=== PATIENT | male | born 1975 | race Caucasian/White ===

== ENCOUNTER 2017-09-29 01:01 | Emergency (ER) | payer MEDICAID ==
[2017-09-29] MEDS ORDERED: Metoclopramide 10 MG/2 ML SDV IVPUSH ONE (01:13)
[2017-09-29] MEDS ORDERED: LORazepam 2 MG/ML SDV IVPUSH ONE ×4 (01:13→04:46)
[2017-09-29] MEDS ORDERED: Thiamine 100 MG in Sodium Chloride 0.9% 100 ML IV ONE (01:13)
[2017-09-29] MEDS ORDERED: Dextrose 5%-Lactated Ringers 1,000 ML IV SCH ×2 (01:15→03:45)
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
[2017-09-29] MEDS ORDERED: diphenhydrAMINE 50 MG/ML SDV IVPUSH ONE (02:22)
[2017-09-29] MEDS ORDERED: diphenhydrAMINE 50 MG/ML SDV ONE (02:28)
[2017-09-29] MEDS ORDERED: Sodium Chloride 0.9% 1,000 ML IV SCH (03:00)
== END 2017-09-29 10:40 | disposition home or self-care (01) ==
LOC: JD.ED 01:01 → MERGE 01:01 → JD.ED 10:40
DX: F10.129 Alcohol abuse with intoxication, unspecified (principal); E87.2 Acidosis; F17.210 Nicotine dependence, cigarettes, uncomplicated; Y90.8 Blood alcohol level of 240 mg/100 ml or more
CPT/HCPCS: 36415; 80053; 80306; 82009; 83605; 83690; 83735; 85025; 85610; 85730; 96361; 96365; 96375; 96376; 99284; G0480; J1200; J2060; J2765; J3411; J7030; J7040; J7042

== ENCOUNTER 2017-09-30 03:05 | Inpatient (IN) | payer MEDICAID ==
--- NOTE | 2017-09-30 03:18 | EDM.PDOC ---
ED HPI GENERAL MEDICAL PROBLEM - General Chief Complaint: Abdominal Pain Stated Complaint: [facility] Time Seen by Provider: 09/30/17 03:11 Source of Information: Reports: Patient History Limitations: Reports: No Limitations - History of Present Illness INITIAL COMMENTS - FREE TEXT/NARRATIVE: 42-year-old male who spent the night in the ED last night presents once again to the ED by [facility]. Patient states that since he was discharged at 0930 hrs. yesterday am. Patient had presented to the ED dropped off by a friend from [facility] severely intoxicated by alcohol. Apparently he was binge drinking for the last 3 days over the . He had stopped drinking for several months or years. His current blood alcohol yesterday morning was 0.29 g percent. He was found to have a significant lactic acidosis with a lactic acid of 6.0. He was therefore given 2 L of D5 lactated Ringer's overnight and received Ativan 1 mg IV 3 or 4 occasions to keep him in the bed. She also received Reglan 10 mg IV for nausea relief. He states since he got home this morning he has not drank anything further. He has taken a few pairs and a bit of other food in. He remains extremely nauseated and since he took the pairs he has developed increasing mid abdominal pain rating to to his back suggestive of pancreatitis. To his knowledge never had pancreatitis in the past. He has not vomited up any blood. He has had marked nausea without vomiting. States the pain is what brought him to the ED now. He has never expressed anything like this in his life before. Onset: Today Onset Date: 09/30/17 Onset Time: 12:00 Duration: Hour(s): Location: Reports: Abdomen (Diffuse severe upper abdominal pain mostly epigastric left upper quadrant radiating through to his mid back.) Quality: Reports: Ache, Other Severity: Severe (Worse pain is ever experienced. Another 10) Improves with: Reports: None Worsens with: Reports: Other Context: Reports: Other (Binge alcohol use 3 days over the weekend. He was seen through the ED last night where his blood alcohol was found. 0.29 g percent. He had a significant lactic acidosis at that time felt to be due to alcohol abuse for 3 days without eating. He was treated with 2 L of Ringer's lactate with dextrose as well as Reglan 10 mg IV for nausea vomiting relief and I believe 4 mg of Ativan in total for sedation to keep him in the bed.). Denies : Activity (Dry heaves.), Exercise, Lifting, Sick Contact, Trauma Associated Symptoms: Reports: Loss of Appetite, Malaise, Nausea/Vomiting, Weakness. 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 [No Known Home Meds] 09/29/17 [History] Past Medical History Gastrointestinal History: Reports: GERD, Hepatitis (Known hepatitis C.) Psychiatric History: Reports: Bipolar Social & Family History - Tobacco Use Years of Tobacco use: 10 - Alcohol Use Days Per Week of Alcohol Use: 1 Number of Drinks Per Day: 6 Total Drinks Per Week: 6 - Recreational Drug Use Recreational Drug Use: No - Living Situation & Occupation Living situation: Reports: Occupation: Unemployed ED ROS GENERAL - Review of Systems Review Of Systems: See Below Constitutional: Reports: Malaise, Weakness, Fatigue, Decreased Appetite. Denies : Fever, Chills HEENT: Reports: No Symptoms Respiratory: Reports: No Symptoms Cardiovascular: Reports: No Symptoms Endocrine: Reports: No Symptoms GI/Abdominal: Reports: Abdominal Pain (Severe abdominal pain 10 out of 10 mostly above the umbilicus epigastrium and left upper quadrant but radiates across his abdomen. It also radiates through to his mid lower back infrascapular early.), Decreased Appetite, Nausea, Vomiting (Mostly dry heaving. No hematemesis). Denies: Constipation, Diarrhea, Distension, Flatus, Hematemesis, Hematochezia, Melena, Other : Reports: No Symptoms Musculoskeletal: Reports: No Symptoms Skin: Reports: No Symptoms Neurological: Reports: No Symptoms Psychiatric: Reports: Other Hematologic/Lymphatic: Reports: No Symptoms (History of bipolar affective disorder.) Immunologic: Reports: No Symptoms ED EXAM, GI/ABD - Physical Exam Exam: See Below Exam Limited By: No Limitations General Appearance: Alert, WD/WN, Moderate Distress (He is in quite severe pain. He is sober at this time. No smell of alcohol at all) Eyes: Bilateral: Normal Appearance (No jaundice. No nystagmus.) Throat/Mouth: Normal Inspection, Normal Lips, Normal Oropharynx, Other. No: Normal Teeth (Patient has a dental infection involving his left upper second molar tooth which is badly decayed and fractured. He states it is hurting quite badly at this time) Head: Atraumatic, Normocephalic (Tongue is dry and coated. Lips are dry) Neck: Normal Inspection, Supple, Non-Tender, Full Range of Motion. No: Lymphadenopathy (L), Lymphadenopathy (R) Respiratory/Chest: No Respiratory Distress, Lungs Clear, Normal Breath Sounds, No Accessory Muscle Use, Chest Non-Tender Cardiovascular: Normal Peripheral Pulses, Regular Rate, Rhythm, No Edema, No Gallop, No Murmur GI/Abdominal Exam: Tender (Tender epigastrium and left upper quadrant), Abnormal Bowel Sounds (Bowel sounds are very quiet sent and few and far between. ) Back Exam: Normal Inspection, Full Range of Motion, CVA Tenderness (L), CVA Tenderness (R) Extremities: Normal Inspection, Normal Range of Motion (Mildly tender), Non- Tender, No Pedal Edema Neurological: Alert, Oriented, CN II-XII Intact, Normal Cognition Psychiatric: Normal Mood, Other Skin Exam: Warm, Dry, Intact, Normal Color, No Rash (In obvious pain.) EKG INTERPRETATION EKG Date: 09/30/17 Time: 03:40 Rhythm: NSR Rate (Beats/Min): 85 [place]: Normal P-Wave: Present QRS: Other (Initial poor R-wave progression. There are Q waves in leads II, III , and F aVF less than 25% of the QRS complex in leads 2 and 3 and therefore considered insignificant. No convincing evidence of previous inferior wall myocardial infarction.) ST-T: Normal QT: Prolonged (QT is moderately prolonged.) EKG Interpretation Comments: Abnormal ECG Course - Vital Signs Last Recorded V/S: Last Vital Signs Temp 36.4 C 09/30/17 03:07 Pulse 80 09/30/17 03:07 Resp 18 09/30/17 03:07 BP 148/98 H 09/30/17 03:07 Pulse Ox 98 09/30/17 03:07 - Orders/Labs/Meds Orders: Active Orders 24 hr Category Date Time Status EKG Documentation Completion [RC] STAT Care 09/30/17 03:20 Active UA W/MICROSCOPIC [URIN] Stat Lab 09/30/17 03:54 Ordered Dextrose 5%-0.9% NaCl [Dextrose 5%-Normal Saline] 1,000 Med 09/30/17 05:45 Active ml IV ASDIRECTED Dextrose 5%-Lactated Ringers 1,000 ml Med 09/30/17 03:30 Active IV ASDIRECTED Medication Orders Dextrose/Lactated Ringer's (Dextrose 5%-Lactated Ringers) 1,000 mls @ 999 mls/ hr IV ASDIRECTED ARAVIND Last Admin: 09/30/17 04:20 Dose: 999 mls/hr Dextrose/Sodium Chloride (Dextrose 5%-Normal Saline) 1,000 mls @ 150 mls/hr IV ASDIRECTED ARAVIND Last Admin: 09/30/17 05:46 Dose: 150 mls/hr Labs: Laboratory Tests 09/30/17 09/30/17 09/30/17 Range/Units 03:50 03:50 03:50 WBC 8.31 (4.23-9.07) K/mm3 RBC 4.99 (4.63-6.08) M/mm3 Hgb 15.2 (13.7-17.5) gm/L Hct 42.7 (40.1-51.0) % MCV 85.6 (79.0-92.2) fl MCH 30.5 (25.7-32.2) pg MCHC 35.6 H (32.2-35.5) g/dl RDW Std Deviation 37.0 (35.1-43.9) fL Plt Count 104 L (163-337) K/mm3 MPV 10.5 (9.4-12.3) fl Neutrophils % (Manual) 80 H (40-60) % Band Neutrophils % 0 (0-10) % Lymphocytes % (Manual) 18 L (20-40) % Atypical Lymphs % 0 % Monocytes % (Manual) 2 (2-10) % Eosinophils % (Manual) 0 L (0.8-7.0) % Basophils % (Manual) 0 L (0.2-1.2) Platelet Estimate Adequate RBC Morph Comment Normal PT 13.1 H (8.0-13.0) SECONDS INR 1.22 APTT 30 (22-36) SECONDS Sodium 140 (136-145) mEq/L Potassium 3.3 L (3.5-5.1) mEq/L Chloride 102 (98-107) mEq/L Carbon Dioxide 23 (21-32) mEq/L Anion Gap 18.3 H (5-15) BUN 8 (7-18) mg/dL Creatinine 0.8 (0.7-1.3) mg/dL Est Cr Clr Drug Dosing 138.72 mL/min Estimated GFR (MDRD) > 60 (>60) mL/min BUN/Creatinine Ratio 10.0 L (14-18) Glucose 157 H (74-106) mg/dL Lactic Acid (0.4-2.0) mmol/L Calcium 9.2 (8.5-10.1) mg/dL Magnesium (1.8-2.4) mg/dl Total Bilirubin 1.8 H (0.2-1.0) mg/dL AST 1651 H (15-37) U/L ALT 1040 H (16-63) U/L Alkaline Phosphatase 73 (46-116) U/L C-Reactive Protein 0.8 (<1.0) mg/dL Total Protein 7.4 (6.4-8.2) g/dl Albumin 4.2 (3.4-5.0) g/dl Globulin 3.2 gm/dL Albumin/Globulin Ratio 1.3 (1-2) Lipase 199 (73-393) U/L Urine Color (Yellow) Urine Appearance (Clear) Urine pH (5.0-8.0) Ur Specific [place] (1.005-1.030) Urine Protein (Negative) Urine Glucose (UA) (Negative) Urine Ketones (Negative) Urine Occult Blood (Negative) Urine Nitrite (Negative) Urine Bilirubin (Negative) Urine Urobilinogen (0.2-1.0) Ur Leukocyte Esterase (Negative) Urine RBC (0-5) /hpf Urine WBC (0-5) /hpf Ur Epithelial Cells (0-5) /hpf Ur Squamous Epith Cells (0-5) /hpf Urine Bacteria (FEW) /hpf Urine Mucus (FEW) /hpf Ketones (0.0-0.3) mM 09/30/17 09/30/17 09/30/17 Range/Units 03:50 03:50 03:54 WBC (4.23-9.07) K/mm3 RBC (4.63-6.08) M/mm3 Hgb (13.7-17.5) gm/L Hct (40.1-51.0) % MCV (79.0-92.2) fl MCH (25.7-32.2) pg MCHC (32.2-35.5) g/dl RDW Std Deviation (35.1-43.9) fL Plt Count (163-337) K/mm3 MPV (9.4-12.3) fl Neutrophils % (Manual) (40-60) % Band Neutrophils % (0-10) % Lymphocytes % (Manual) (20-40) % Atypical Lymphs % % Monocytes % (Manual) (2-10) % Eosinophils % (Manual) (0.8-7.0) % Basophils % (Manual) (0.2-1.2) Platelet Estimate RBC Morph Comment PT (8.0-13.0) SECONDS INR APTT (22-36) SECONDS Sodium (136-145) mEq/L Potassium (3.5-5.1) mEq/L Chloride (98-107) mEq/L Carbon Dioxide (21-32) mEq/L Anion Gap (5-15) BUN (7-18) mg/dL Creatinine (0.7-1.3) mg/dL Est Cr Clr Drug Dosing mL/min Estimated GFR (MDRD) (>60) mL/min BUN/Creatinine Ratio (14-18) Glucose (74-106) mg/dL Lactic Acid (0.4-2.0) mmol/L Calcium (8.5-10.1) mg/dL Magnesium 2.1 (1.8-2.4) mg/dl Total Bilirubin (0.2-1.0) mg/dL AST (15-37) U/L ALT (16-63) U/L Alkaline Phosphatase (46-116) U/L C-Reactive Protein (<1.0) mg/dL Total Protein (6.4-8.2) g/dl Albumin (3.4-5.0) g/dl Globulin gm/dL Albumin/Globulin Ratio (1-2) Lipase (73-393) U/L Urine Color Yellow (Yellow) Urine Appearance Clear (Clear) Urine pH 7.0 (5.0-8.0) Ur Specific [place] 1.020 (1.005-1.030) Urine Protein 1+ H (Negative) Urine Glucose (UA) Negative (Negative) Urine Ketones Negative (Negative) Urine Occult Blood Negative (Negative) Urine Nitrite Negative (Negative) Urine Bilirubin Negative (Negative) Urine Urobilinogen 4.0 H (0.2-1.0) Ur Leukocyte Esterase Negative (Negative) Urine RBC 0-5 (0-5) /hpf Urine WBC 0-5 (0-5) /hpf Ur Epithelial Cells 0-5 (0-5) /hpf Ur Squamous Epith Cells 0-5 (0-5) /hpf Urine Bacteria Not seen (FEW) /hpf Urine Mucus Not seen (FEW) /hpf Ketones 0.21 (0.0-0.3) mM 04/03/18 Range/Units 06:10 WBC (4.23-9.07) K/mm3 RBC (4.63-6.08) M/mm3 Hgb (13.7-17.5) gm/L Hct (40.1-51.0) % MCV (79.0-92.2) fl MCH (25.7-32.2) pg MCHC (32.2-35.5) g/dl RDW Std Deviation (35.1-43.9) fL Plt Count (163-337) K/mm3 MPV (9.4-12.3) fl Neutrophils % (Manual) (40-60) % Band Neutrophils % (0-10) % Lymphocytes % (Manual) (20-40) % Atypical Lymphs % % Monocytes % (Manual) (2-10) % Eosinophils % (Manual) (0.8-7.0) % Basophils % (Manual) (0.2-1.2) Platelet Estimate RBC Morph Comment PT (8.0-13.0) SECONDS INR APTT (22-36) SECONDS Sodium (136-145) mEq/L Potassium (3.5-5.1) mEq/L Chloride (98-107) mEq/L Carbon Dioxide (21-32) mEq/L Anion Gap (5-15) BUN (7-18) mg/dL Creatinine (0.7-1.3) mg/dL Est Cr Clr Drug Dosing mL/min Estimated GFR (MDRD) (>60) mL/min BUN/Creatinine Ratio (14-18) Glucose (74-106) mg/dL Lactic Acid 2.5 H (0.4-2.0) mmol/L Calcium (8.5-10.1) mg/dL Magnesium (1.8-2.4) mg/dl Total Bilirubin (0.2-1.0) mg/dL AST (15-37) U/L ALT (16-63) U/L Alkaline Phosphatase (46-116) U/L C-Reactive Protein (<1.0) mg/dL Total Protein (6.4-8.2) g/dl Albumin (3.4-5.0) g/dl Globulin gm/dL Albumin/Globulin Ratio (1-2) Lipase (73-393) U/L Urine Color (Yellow) Urine Appearance (Clear) Urine pH (5.0-8.0) Ur Specific [place] (1.005-1.030) Urine Protein (Negative) Urine Glucose (UA) (Negative) Urine Ketones (Negative) Urine Occult Blood (Negative) Urine Nitrite (Negative) Urine Bilirubin (Negative) Urine Urobilinogen (0.2-1.0) Ur Leukocyte Esterase (Negative) Urine RBC (0-5) /hpf Urine WBC (0-5) /hpf Ur Epithelial Cells (0-5) /hpf Ur Squamous Epith Cells (0-5) /hpf Urine Bacteria (FEW) /hpf Urine Mucus (FEW) /hpf Ketones (0.0-0.3) mM Meds: Medications Generic Name Dose Route Start Last Admin Trade Name Freq PRN Reason Stop Dose Admin Dextrose/Lactated Ringer's 1,000 mls @ 999 mls/hr 09/30/17 03:30 09/30/17 04: 20 Dextrose 5%-Lactated Ringers IV 999 mls/hr ASDIRECTED ARAVIND Administration Dextrose/Sodium Chloride 1,000 mls @ 150 mls/hr 09/30/17 05:45 09/30/17 05:46 Dextrose 5%-Normal Saline IV 150 mls/hr ASDIRECTED ARAVIND Administration Discontinued Medications Generic Name Dose Route Start Last Admin Trade Name Jeff PRN Reason Stop Dose Admin Hydromorphone HCl 1 mg 09/30/17 03:19 09/30/17 03:47 Dilaudid IVPUSH 09/30/17 03:20 1 mg ONETIME ONE Administration Hydromorphone HCl 1 mg 09/30/17 04:35 09/30/17 04:41 Dilaudid IVPUSH 09/30/17 04:36 1 mg ONETIME ONE Administration Hydromorphone HCl 1 mg 09/30/17 05:57 09/30/17 06:18 Dilaudid IVPUSH 09/30/17 05:58 1 mg ONETIME ONE Administration Ceftriaxone Sodium 1 gm/ 100 mls @ 200 mls/hr 09/30/17 03:22 09/30/17 03:51 Sodium Chloride IV 09/30/17 03:51 200 mls/hr ONETIME ONE Administration Potassium Chloride 10 meq/ 100 mls @ 100 mls/hr 09/30/17 05:32 09/30/17 05:47 Premix IV 09/30/17 06:31 100 mls/hr ONETIME ONE Administration Lorazepam 1 mg 09/30/17 05:57 09/30/17 06:14 Ativan IVPUSH 09/30/17 05:58 1 mg ONETIME ONE Administration Metoclopramide HCl 10 mg 09/30/17 03:20 09/30/17 03:52 Reglan IVPUSH 09/30/17 03:21 10 mg ONETIME ONE Administration - Radiology Interpretation Free Text/Narrative:: 42-year-old male returns to the ED by ambulance from [facility] due to severe upper abdominal pain rating to to his back associated nausea and dry heaves. Patient spent the night in the ED last night of which he has no recollection as he was severely inebriated by alcohol. His blood alcohol last night at bedtime presentation was 0.29 g percent. By history he had been drinking heavily for 3 days without eating. He was found to have a significant lactic acidosis with a lactic acid of 6.0. It was 3.9 minutes time of discharge this morning. He has not been able to eat or drink much since leaving the hospital. At present he is complaining of severe abdominal pain radiating through to his back suggestive of pancreatitis. He has no history of pancreatitis. Plan 1 view of his chest will be done to make sure there is no free air under his diaphragm is he is quite tender in the epigastrium. He will be given IV D5 normal saline at open. Routine labs ordered including a serum lipase. Given Dilaudid 1 mg IV with Reglan 10 mg IV for acute pain and nausea relief. The Dilaudid should also help with his severe dental pain. Will give Rocephin 1 g IV for dental pain infections as I suspect he has an abscess involving the left upper first molar tooth which is badly decayed. - Re-Assessments/Exams Free Text/Narrative Re-Assessment/Exam: 09/30/17 04:41 patient did get some initial relief of the abdominal pain with initial dose of Dilaudid 1 mg however now the pain is coming back quite intensely. Will repeat Dilaudid 1 mg IV. Of note his chest x-ray was within normal limits although it does show rather prominent pulmonary arteries. There was no free air under the diaphragm. One view of the abdomen also was within normal limits showing no evidence of bowel obstruction. There is a fair amount of air tracking in the right hemicolon but again no sign of obstruction labs are still pending. 09/30/17 05:21 Labs are back. White count is normal at 8.31 with 80% neutrophils and no bands reported. Hemoglobin is 15.2 with hematocrit of 42.7. Platelet count is 104,000 slightly low. PT is 13.1 with an INR 1.2 to a mild auto anticoagulation suggesting he has been drinking alcohol more than he has let on. PTT is 30. Sodium is 140 with a potassium of 3.3. Chloride 102 with a bicarbonate of 23. Anion gap elevated at 18.3. BUN was 8 with a creatinine of 0.8. Glucose is 157. Calcium is 9.2. Total bilirubin is elevated at 1.8 AST is markedly elevated at 1651. ALT is markedly elevated at 1040. Alk phosphatase is 73 C-reactive protein is 0.8. Lipase is normal at 199. Urinalysis is negative. Therefore his current abdominal pain appears to be secondary to acute alcohol- induced hepatitis with an associated continued metabolic acidosis. I will have the lab come and check his serum ketones and lactic acid level as he had a significant lactic acidosis last evening. This appears to be secondary to alcoholism and not eating for the last 3 or 4 days. Currently he has been able to rest after the second dose of Dilaudid --1 mg IV. 09/30/17 05:56 patient advised of the findings of acute alcohol-induced hepatitis. He has known hepatitis C as well. Pain is trying to come back. He is also starting to show some agitation I believe from alcohol withdrawal. Therefore I will give him 1 mg of Ativan IV with Dilaudid 1 mg IV as well. Plan will be to admit him to the hospital likely to the intensive care unit since I believe there is a high risk of alcohol withdrawal symptoms. We'll discuss case with Dr. Manuel shortly. Apparently there is only 1 nurse in the ICU overnight and therefore he would not be able to be admitted to the intensive care unit until after 0700 hrs. this morning. Serum ketones are 0.21. Lactic acid and magnesium are pending 09/30/17 06:20: Patient to be admitted to the intensive care unit once a bed is available. I did speak with Dr. Manuel in this regard and he has agreed to the admission. Risk of alcohol withdrawal symptoms is I think fairly high. Departure - Departure Time of Disposition: 07:30 Disposition: Admitted As Inpatient 68 Condition: Serious Clinical Impression: Alcoholic hepatitis without ascites, Lactic acidosis, Hypokalemia due to inadequate potassium intake Abdominal pain Qualifiers: Abdominal location: right upper quadrant Qualified Code(s): R10.11 - Right upper quadrant pain Intractable nausea and vomiting Qualifiers: Vomiting type: unspecified Qualified Code(s): R11.2 - Nausea with vomiting, unspecified - Discharge Information Referrals: PCP,None [Primary Care Provider] - Forms: ED Department Discharge - My Orders Last 24 Hours: My Active Orders 09/30/17 03:20 EKG Documentation Completion [RC] STAT 09/30/17 03:30 Dextrose 5%-Lactated Ringers 1,000 ml IV ASDIRECTED 09/30/17 03:54 UA W/MICROSCOPIC [URIN] Stat 09/30/17 05:45 Dextrose 5%-0.9% NaCl [Dextrose 5%-Normal Saline] 1,000 ml IV ASDIRECTED - Assessment/Plan Last 24 Hours: My Active Orders 09/30/17 03:20 EKG Documentation Completion [RC] STAT 09/30/17 03:30 Dextrose 5%-Lactated Ringers 1,000 ml IV ASDIRECTED 09/30/17 03:54 UA W/MICROSCOPIC [URIN] Stat 09/30/17 05:45 Dextrose 5%-0.9% NaCl [Dextrose 5%-Normal Saline] 1,000 ml IV ASDIRECTED
[2017-09-30] MEDS ORDERED: HYDROmorphone 0.5 MG/0.5 ML SYRINGE IVPUSH ONE ×3 (03:19→05:57)
[2017-09-30] MEDS ORDERED: Metoclopramide 10 MG/2 ML SDV IVPUSH ONE (03:20)
[2017-09-30] MEDS ORDERED: cefTRIAXone 1 GM in Sodium Chloride 0.9% 100 ML IV ONE (03:22)
[2017-09-30] MEDS ORDERED: Dextrose 5%-Lactated Ringers 1,000 ML IV SCH (03:30)
[2017-09-30] MEDS ORDERED: Potassium Chloride 10 MEQ in Premix Bag 1 BAG IV ONE (05:32)
[2017-09-30] MEDS ORDERED: Dextrose 5%-0.9% NaCl 1,000 ML IV SCH (05:45)
[2017-09-30] MEDS ORDERED: LORazepam 2 MG/ML SDV IVPUSH ONE (05:57)
--- NOTE | 2017-09-30 06:33 | CR ---
Chest: Frontal view of the chest was obtained. Comparison: No previous study. Heart size and mediastinum are normal. Lungs are clear. Bony structures are grossly intact. Impression: 1. Nothing acute is seen on frontal chest x-ray. Diagnostic code #1
--- NOTE | 2017-09-30 06:46 | CR ---
Abdomen: Supine view of the abdomen was obtained. Mildly dilated air-filled small bowel is seen distally. Gas also noted within the right colon which does not show any dilatation. No abnormal calcifications are seen. Bony structures are unremarkable for the patient's age. Surgical clips are seen within the left inguinal region. Impression: 1. Mildly dilated air-filled loops of small bowel seen distally. Developing distal small bowel obstruction is possible as well as small bowel ileus. Diagnostic code #3
--- NOTE | 2017-09-30 07:09 | PCM.HP ---
H&P History of Present Illness - General Date of Service: 09/30/17 Admit Problem/Dx: Admission Diagnosis/Problem Admission Diagnosis/Problem Abdominal pain Source of Information: Patient, Old Records, Provider, RN Notes Reviewed History Limitations: Reports: Intoxication - History of Present Illness Initial Comments - Free Text/Narative: This is 42 yo white male with past medical hx/o GERD, Hep C Infection, Bipolar Disorder, SA, Depression, Back Pain, Substance Abuse and Hx/o chronic ETOH Abuse who comes in with complaints of abdominal pain 10/10 localized to mid abdomen with radiation to his mid lower back. He reports decreased appetite, nausea and dry heaving. He denies having diarrhea. His last bowel movement was 5 days ago. He denies any hematemesis, hematochezia or melena. He further denies drinking or eating bad foods. His intake has not been good. His last etoh drink was friday. Patient carries a hx/o Hep C infection w/o current treatment felt to be contracted from hx/o IVDU. He has been drinking heavily in the past 3 days with combinations of heavy liquor and a case of beer daily. According to him, he has been overwhelmed with life. He just got out in correction in [place] due to reckless endangerment after he caught his having an affair. Patient smokes a pack a day and carries a hx/o amphethamine abuse. His last use was > a year go. He also carries a hx/o IVDU. He follows Dr. Simpson from [place] for his psychiatric care. Patient was initially seen in ED and was sent home to get better. Unfortunately , he did not do well so he was brought back by [place] [facility] for further treatment. His initial workup in emergency department shows a CBC remarkable for MCHC of 35.6, platelet count of 104, neutrophils of 80% and lymphocytes of 18%. His coagulation study shows PT of 13.1, INR of 1.22, and APTT of 30. His chemistry is remarkable for potassium of 3.3, anion gap of 18.3, glucose of 157, total bilirubin of 1.8, GGT of 321, AST of 1651, and ALT of 1040. His UA is negative for UTI. His chest x-ray shows no acute abnormal findings. His abdominal x-ray shows mildly dilated air fluid loops of small bowel seen distally and developing distal small bowel obstruction is possible as well as small bowel ileus. Patient is being admitted for medical treatment of alcohol abuse and abdominal pain likely related to alcohol abuse. He is full code. Abdomen Pain Score (Numeric/FACES): 6 - Related Data Allergies/Adverse Reactions: Allergies Allergy/AdvReac Type Severity Reaction Status Date / Time No Known Allergies Allergy Verified 09/30/17 08:24 Home Medications: Home Meds FLUoxetine [PROzac] 40 mg PO DAILY 01/29/14 [History] Methylphenidate HCl [Ritalin] 20 mg PO TID 09/30/17 [History] Past Medical History - Past Health History Medical/Surgical History: Denies Medical/Surgical History Respiratory History: Reports: TB Gastrointestinal History: Reports: GERD, Hepatitis (Known hepatitis C.) Psychiatric History: Reports: Bipolar - Infectious Disease History Infectious Disease History: Reports: Hepatitis C Social & Family History - Family History Family Medical History: Noncontributory - Tobacco Use Smoking Status *Q: Current Every Day Smoker Years of Tobacco use: 10 Packs/Tins Daily: 0.5 - Caffeine Use Caffeine Use: Reports: Coffee - Alcohol Use Days Per Week of Alcohol Use: 1 Number of Drinks Per Day: 6 Total Drinks Per Week: 6 - Recreational Drug Use Recreational Drug Use: No Recreational Drug Type: Reports: Methamphetamine - Living Situation & Occupation Living situation: Reports: Occupation: Unemployed H&P Review of Systems - Review of Systems: Review Of Systems: See Below General: Reports: Malaise, Weakness, Decreased Appetite. Denies: Fever, Chills HEENT: Reports: No Symptoms Pulmonary: Reports: No Symptoms Cardiovascular: Denies: Chest Pain, Palpitations, Dyspnea on Exertion, Edema, Lightheadedness, Syncope, Claudication, Blood Pressure Problem Gastrointestinal: Reports: Abdominal Pain, Constipation, Nausea, Vomiting, Other (No bowel movement in 5 days) Genitourinary: Reports: No Symptoms Musculoskeletal: Reports: No Symptoms Skin: Denies: Cyanosis, Jaundice, Mottled, Pallor, Diaphoresis, Bruising, Pruritis, Rash, Lesions Psychiatric: Denies: Confusion, Depression, Anxiety, Agitation, Cravings, Hallucinations Neurological: Denies: Confusion, Difficulty Walking, Weakness, Gait Disturbance Hematologic/Lymphatic: Reports: No Symptoms Immunologic: Reports: No Symptoms Exam - Exam Exam: See Below - Vital Signs Vital Signs: Last Vital Signs Temp 36.4 C 04/03/18 03:07 Pulse 80 09/30/17 03:07 Resp 18 09/30/17 03:07 BP 148/98 H 09/30/17 03:07 Pulse Ox 98 09/30/17 03:07 Weight: 102.058 kg - Exam General: Alert, Oriented, Cooperative. No: Mild Distress HEENT: Conjunctiva Clear, EACs Clear, Hearing Intact, Mucosa Moist & [place], Nares Patent, Normal Nasal Septum, Posterior Pharynx Clear, Pupils Equal, Pupils Reactive. No: EOMI Neck: Supple, Trachea Midline, +2 Carotid Pulse wo Bruit Lungs: Clear to Auscultation, Normal Respiratory Effort Cardiovascular: Regular Rate, Regular Rhythm GI/Abdominal Exam: Normal Bowel Sounds, Soft, No Organomegaly, No Distention, No Abnormal Bruit, No Mass, Tender (mild at mid-abdomen), Other (he is passing gas). No: Guarding, Rigid, Rebound, Hepatomegaly (Male) Exam: Deferred Rectal (Males) Exam: Deferred Back Exam: Normal Inspection, Decreased Range of Motion Extremities: Normal Inspection, Normal Range of Motion, Non-Tender, No Pedal Edema, Normal Capillary Refill Peripheral Pulses: 2+: Dorsalis Pedis (L), Dorsalis Pedis (R) Skin: Warm, Dry, Intact Neuro Extensive - Mental Status: Oriented x3, Normal Cognition, Memory Intact Neuro Extensive - Motor, Sensory, Reflexes: CN II-XII Intact, Normal Gait. No: Tremor Psychiatric: Alert, Normal Affect, Normal Mood. No: Agitated, Suicidal Ideation - Patient Data Lab Results Last 24 hrs: Laboratory Results - last 24 hr 09/30/17 09/30/17 09/30/17 Range/Units 03:50 03:50 03:50 WBC 8.31 (4.23-9.07) K/mm3 RBC 4.99 (4.63-6.08) M/mm3 Hgb 15.2 (13.7-17.5) gm/L Hct 42.7 (40.1-51.0) % MCV 85.6 (79.0-92.2) fl MCH 30.5 (25.7-32.2) pg MCHC 35.6 H (32.2-35.5) g/dl RDW Std Deviation 37.0 (35.1-43.9) fL Plt Count 104 L (163-337) K/mm3 MPV 10.5 (9.4-12.3) fl Neutrophils % (Manual) 80 H (40-60) % Band Neutrophils % 0 (0-10) % Lymphocytes % (Manual) 18 L (20-40) % Atypical Lymphs % 0 % Monocytes % (Manual) 2 (2-10) % Eosinophils % (Manual) 0 L (0.8-7.0) % Basophils % (Manual) 0 L (0.2-1.2) Platelet Estimate Adequate RBC Morph Comment Normal PT 13.1 H (8.0-13.0) SECONDS INR 1.22 APTT 30 (22-36) SECONDS Sodium 140 (136-145) mEq/L Potassium 3.3 L (3.5-5.1) mEq/L Chloride 102 (98-107) mEq/L Carbon Dioxide 23 (21-32) mEq/L Anion Gap 18.3 H (5-15) BUN 8 (7-18) mg/dL Creatinine 0.8 (0.7-1.3) mg/dL Est Cr Clr Drug Dosing 138.72 mL/min Estimated GFR (MDRD) > 60 (>60) mL/min BUN/Creatinine Ratio 10.0 L (14-18) Glucose 157 H (74-106) mg/dL Lactic Acid (0.4-2.0) mmol/L Calcium 9.2 (8.5-10.1) mg/dL Magnesium (1.8-2.4) mg/dl Total Bilirubin 1.8 H (0.2-1.0) mg/dL AST 1651 H (15-37) U/L ALT 1040 H (16-63) U/L Alkaline Phosphatase 73 (46-116) U/L C-Reactive Protein 0.8 (<1.0) mg/dL Total Protein 7.4 (6.4-8.2) g/dl Albumin 4.2 (3.4-5.0) g/dl Globulin 3.2 gm/dL Albumin/Globulin Ratio 1.3 (1-2) Lipase 199 (73-393) U/L Urine Color (Yellow) Urine Appearance (Clear) Urine pH (5.0-8.0) Ur Specific Brice (1.005-1.030) Urine Protein (Negative) Urine Glucose (UA) (Negative) Urine Ketones (Negative) Urine Occult Blood (Negative) Urine Nitrite (Negative) Urine Bilirubin (Negative) Urine Urobilinogen (0.2-1.0) Ur Leukocyte Esterase (Negative) Urine RBC (0-5) /hpf Urine WBC (0-5) /hpf Ur Epithelial Cells (0-5) /hpf Ur Squamous Epith Cells (0-5) /hpf Urine Bacteria (FEW) /hpf Urine Mucus (FEW) /hpf Ketones (0.0-0.3) mM 09/30/17 09/30/17 09/30/17 Range/Units 03:50 03:50 03:54 WBC (4.23-9.07) K/mm3 RBC (4.63-6.08) M/mm3 Hgb (13.7-17.5) gm/L Hct (40.1-51.0) % MCV (79.0-92.2) fl MCH (25.7-32.2) pg MCHC (32.2-35.5) g/dl RDW Std Deviation (35.1-43.9) fL Plt Count (163-337) K/mm3 MPV (9.4-12.3) fl Neutrophils % (Manual) (40-60) % Band Neutrophils % (0-10) % Lymphocytes % (Manual) (20-40) % Atypical Lymphs % % Monocytes % (Manual) (2-10) % Eosinophils % (Manual) (0.8-7.0) % Basophils % (Manual) (0.2-1.2) Platelet Estimate RBC Morph Comment PT (8.0-13.0) SECONDS INR APTT (22-36) SECONDS Sodium (136-145) mEq/L Potassium (3.5-5.1) mEq/L Chloride (98-107) mEq/L Carbon Dioxide (21-32) mEq/L Anion Gap (5-15) BUN (7-18) mg/dL Creatinine (0.7-1.3) mg/dL Est Cr Clr Drug Dosing mL/min Estimated GFR (MDRD) (>60) mL/min BUN/Creatinine Ratio (14-18) Glucose (74-106) mg/dL Lactic Acid (0.4-2.0) mmol/L Calcium (8.5-10.1) mg/dL Magnesium 2.1 (1.8-2.4) mg/dl Total Bilirubin (0.2-1.0) mg/dL AST (15-37) U/L ALT (16-63) U/L Alkaline Phosphatase (46-116) U/L C-Reactive Protein (<1.0) mg/dL Total Protein (6.4-8.2) g/dl Albumin (3.4-5.0) g/dl Globulin gm/dL Albumin/Globulin Ratio (1-2) Lipase (73-393) U/L Urine Color Yellow (Yellow) Urine Appearance Clear (Clear) Urine pH 7.0 (5.0-8.0) Ur Specific Brice 1.020 (1.005-1.030) Urine Protein 1+ H (Negative) Urine Glucose (UA) Negative (Negative) Urine Ketones Negative (Negative) Urine Occult Blood Negative (Negative) Urine Nitrite Negative (Negative) Urine Bilirubin Negative (Negative) Urine Urobilinogen 4.0 H (0.2-1.0) Ur Leukocyte Esterase Negative (Negative) Urine RBC 0-5 (0-5) /hpf Urine WBC 0-5 (0-5) /hpf Ur Epithelial Cells 0-5 (0-5) /hpf Ur Squamous Epith Cells 0-5 (0-5) /hpf Urine Bacteria Not seen (FEW) /hpf Urine Mucus Not seen (FEW) /hpf Ketones 0.21 (0.0-0.3) mM 04/03/18 Range/Units 06:10 WBC (4.23-9.07) K/mm3 RBC (4.63-6.08) M/mm3 Hgb (13.7-17.5) gm/L Hct (40.1-51.0) % MCV (79.0-92.2) fl MCH (25.7-32.2) pg MCHC (32.2-35.5) g/dl RDW Std Deviation (35.1-43.9) fL Plt Count (163-337) K/mm3 MPV (9.4-12.3) fl Neutrophils % (Manual) (40-60) % Band Neutrophils % (0-10) % Lymphocytes % (Manual) (20-40) % Atypical Lymphs % % Monocytes % (Manual) (2-10) % Eosinophils % (Manual) (0.8-7.0) % Basophils % (Manual) (0.2-1.2) Platelet Estimate RBC Morph Comment PT (8.0-13.0) SECONDS INR APTT (22-36) SECONDS Sodium (136-145) mEq/L Potassium (3.5-5.1) mEq/L Chloride (98-107) mEq/L Carbon Dioxide (21-32) mEq/L Anion Gap (5-15) BUN (7-18) mg/dL Creatinine (0.7-1.3) mg/dL Est Cr Clr Drug Dosing mL/min Estimated GFR (MDRD) (>60) mL/min BUN/Creatinine Ratio (14-18) Glucose (74-106) mg/dL Lactic Acid 2.5 H (0.4-2.0) mmol/L Calcium (8.5-10.1) mg/dL Magnesium (1.8-2.4) mg/dl Total Bilirubin (0.2-1.0) mg/dL AST (15-37) U/L ALT (16-63) U/L Alkaline Phosphatase (46-116) U/L C-Reactive Protein (<1.0) mg/dL Total Protein (6.4-8.2) g/dl Albumin (3.4-5.0) g/dl Globulin gm/dL Albumin/Globulin Ratio (1-2) Lipase (73-393) U/L Urine Color (Yellow) Urine Appearance (Clear) Urine pH (5.0-8.0) Ur Specific Brice (1.005-1.030) Urine Protein (Negative) Urine Glucose (UA) (Negative) Urine Ketones (Negative) Urine Occult Blood (Negative) Urine Nitrite (Negative) Urine Bilirubin (Negative) Urine Urobilinogen (0.2-1.0) Ur Leukocyte Esterase (Negative) Urine RBC (0-5) /hpf Urine WBC (0-5) /hpf Ur Epithelial Cells (0-5) /hpf Ur Squamous Epith Cells (0-5) /hpf Urine Bacteria (FEW) /hpf Urine Mucus (FEW) /hpf Ketones (0.0-0.3) mM Result Diagrams: 09/30/17 03:50 09/30/17 03:50 Problem List Initiated/Reviewed/Updated: Yes Orders Last 24hrs: Active Orders 24 hr Category Date Time Status Patient Status [ADT] Routine ADT 09/30/17 07:04 Active EKG Documentation Completion [RC] STAT Care 09/30/17 03:20 Active UA W/MICROSCOPIC [URIN] Stat Lab 09/30/17 03:54 Ordered Dextrose 5%-0.9% NaCl [Dextrose 5%-Normal Saline] 1,000 Med 09/30/17 05:45 Active ml IV ASDIRECTED Dextrose 5%-Lactated Ringers 1,000 ml Med 09/30/17 03:30 Active IV ASDIRECTED Medication Orders Dextrose/Lactated Ringer's (Dextrose 5%-Lactated Ringers) 1,000 mls @ 999 mls/ hr IV ASDIRECTED [facility] Last Admin: 09/30/17 04:20 Dose: 999 mls/hr Dextrose/Sodium Chloride (Dextrose 5%-Normal Saline) 1,000 mls @ 150 mls/hr IV ASDIRECTED [facility] Last Admin: 09/30/17 05:46 Dose: 150 mls/hr Assessment/Plan Comment:: Assessment/Plan: Acute ETOH Abuse - He drinks heavily 2/2 depression and recent marital issue - CIWA protocol: CIWA score is markedly elevated - Ativan/Librium/Clonidine/Topamax - Hydralazine and IVP BB for HR/BP control - Ativan for Abortive Seizure and Withdrawal Symptoms - IV hydration ETOH Gastritis - Has hx/o GERD also had been drinking heavily for the past 3 days - PPI IV x1 then H2B Abdominal Ileus vs Possible Partial SBO - He is passing gas - His last bowel movement was 5 days ago - Bowel prep for medical disimpaction Transaminitis - Carries a hx/o Hep C infection - His PCP in the process of referring him [place] Nausea/Vomiting - With elevated GGT; may consider Abdominal U/S or CT scan in AM - PRN anti-emesis Chronic: GERD Bipolar Disorder Depression/Anxiety Back Pain Hx/o Poly-Substance Abuse Marital Discord/Disharmony Plan: Admit to ICU MVI, Folic Acid and Thiamine CIWA protocol Ativan for Abortive Seizure and Withdrawal Symptoms PRN meds for Withdrawal Symptoms Aspiration/Seizure Precautions SW/CM d/c planning SA/Psych consult Code Status: 1
[2017-09-30] MEDS ORDERED: hydrALAZINE 20 MG/ML SDV IVPUSH PRN (07:48)
[2017-09-30] MEDS ORDERED: Metoprolol Tartrate 5 MG/5 ML SDV IVPUSH PRN (07:48)
[2017-09-30] MEDS ORDERED: LORazepam 2 MG/ML SDV IVPUSH PRN ×2 (07:48)
[2017-09-30] MEDS ORDERED: Promethazine 12.5 MG in Sodium Chloride 0.9% 50 ML IV PRN (07:49)
[2017-09-30] MEDS ORDERED: Ibuprofen 600 MG Tab PO PRN (07:49)
[2017-09-30] MEDS ORDERED: Ondansetron 4 MG/2 ML SDV IV PRN (07:49)
[2017-09-30] MEDS ORDERED: Docusate Sodium 100 MG Cap PO PRN (07:49)
[2017-09-30] MEDS ORDERED: oxyCODONE 5 MG Tab PO PRN (07:49)
[2017-09-30] MEDS ORDERED: Bisacodyl 5 MG Tab PO PRN (07:49)
[2017-09-30] MEDS ORDERED: Polyethylene Glycol 3350 Powder 17 GM Packet PO PRN (07:49)
[2017-09-30] MEDS ORDERED: Pantoprazole 40 MG Vial IVPUSH ONE (07:49)
[2017-09-30] MEDS ORDERED: Albuterol/Ipratropium 3.0-0.5 MG/3 ML Neb Soln NEB PRN (07:49)
[2017-09-30] MEDS ORDERED: Folic Acid 50 MG/10 ML MDV SUBCUT ONE (07:52)
[2017-09-30] MEDS ORDERED: cloNIDine 0.1 MG Tab PO PRN (07:52)
[2017-09-30] MEDS ORDERED: chlordiazePOXIDE 25 MG Cap PO PRN (07:52)
[2017-09-30] MEDS ORDERED: QUEtiapine 25 MG Tab PO ONE (07:55)
[2017-09-30] MEDS ORDERED: Topiramate 25 MG Tab PO STA (07:56)
[2017-09-30] MEDS ORDERED: chlordiazePOXIDE 25 MG Cap PO SCH (08:00)
[2017-09-30] MEDS ORDERED: Nicotine 21 MG/24 Hr Patch TRDERM SCH (09:00)
[2017-09-30] MEDS ORDERED: FLUoxetine 20 MG Cap PO SCH (09:00)
[2017-09-30] MEDS: Sodium Chloride 0.9% 1,000 ML IV SCH ×2 (09:03→16:57)
[2017-09-30] MEDS: chlordiazePOXIDE 25 MG Cap PO SCH ×2 (09:10→13:04)
[2017-09-30] MEDS: HYDROmorphone 0.5 MG/0.5 ML SYRINGE IVPUSH PRN ×2 (15:56→22:28)
[2017-09-30] MEDS ORDERED: Lactulose Soln 10 GM/15 ML 30 ML UD Cup PO ONE (18:48)
[2017-09-30] MEDS ORDERED: Multivitamins,Therapeutic Tab PO SCH (21:00)
[2017-09-30] MEDS ORDERED: QUEtiapine 25 MG Tab PO SCH (21:00)
[2017-09-30] MEDS ORDERED: Topiramate 25 MG Tab PO SCH (21:00)
[2017-10-01] MEDS ORDERED: Famotidine 20 MG Tab PO SCH (08:00)
--- NOTE | 2017-10-01 08:39 | PCM.DCSUM1 ---
Discharge Summary - Hospital Course Brief History: This is 42 yo white male with past medical hx/o GERD, Hep C Infection, Bipolar Disorder, SA, Depression, Back Pain, Substance Abuse and Hx/ o chronic ETOH Abuse who comes in with complaints of abdominal pain 10/10 localized to mid abdomen with radiation to his mid lower back. He reports decreased appetite, nausea and dry heaving. He denies having diarrhea. His last bowel movement was 5 days ago. He denies any hematemesis, hematochezia or melena. He further denies drinking or eating bad foods. His intake has not been good. His last etoh drink was friday. - Discharge Data Discharge Date: 10/01/17 Discharge Disposition: Against Medical Advice 07 Condition: Fair - Discharge Diagnosis/Problem(s) (1) Abdominal pain SNOMED Code(s): 87833711 ICD Code: R10.9 - UNSPECIFIED ABDOMINAL PAIN Status: Acute Qualifiers: Abdominal location: right upper quadrant Qualified Code(s): R10.11 - Right upper quadrant pain (2) Acute alcoholic intoxication SNOMED Code(s): 88217232 ICD Code: F10.929 - ALCOHOL USE, UNSPECIFIED WITH INTOXICATION, UNSPECIFIED Status: Acute Qualifiers: Complication of substance-induced condition: uncomplicated Qualified Code(s ): F10.929 - Alcohol use, unspecified with intoxication, unspecified (3) Alcohol abuse SNOMED Code(s): 27961592 ICD Code: F10.10 - ALCOHOL ABUSE, UNCOMPLICATED Status: Acute (4) Alcoholic hepatitis without ascites SNOMED Code(s): 913279268 ICD Code: K70.10 - ALCOHOLIC HEPATITIS WITHOUT ASCITES Status: Acute (5) Hypokalemia due to inadequate potassium intake SNOMED Code(s): 79765248 ICD Code: E87.6 - HYPOKALEMIA Status: Acute (6) Lactic acid acidosis SNOMED Code(s): 55564482 ICD Code: E87.2 - ACIDOSIS Status: Acute - Patient Summary/Data Operative Procedure(s) Performed: None Complications: None Consults: Consultations 09/30/17 07:52 Consult to Case Management [CONS] Routine Consult to Physician [CONS] Routine Consult to Sales Officer [CONS] Routine Labs Pending at D/C: None Recommended Follow-up Testing/Procedures: None Planned Operative Procedure(s) after DC: None Hospital Course: Patient was admitted for medical evaluation of abdominal pain which we felt associated with his recent alcohol abuse. He was initially seen in ED for alcohol intoxication and discharged home to get better. Unfortunately, he did not do well outpatient so he came back via ambulance for further management. Upon admission, he seemed more stable and felt better. However later in the evening, he started to get anxious and indicating he wanted to go home early the next day. I assured him, he will be discharged right away once he had a bowel movement and tolerating solid meal w/o any GI issues. At midnight, I received a phone call from his nurse informing me that patient left AMA. - Discharge Plan Home Medications: Home Meds FLUoxetine [PROzac] 40 mg PO DAILY 01/29/14 [History] Methylphenidate HCl [Ritalin] 20 mg PO TID 09/30/17 [History] Patient Handouts: What You Need to Know About Smokeless Tobacco Use, Steps to Quit Smoking Referrals: PCP,None [Primary Care Provider] - - Discharge Summary/Plan Comment Discharge Summary/Plan Comment: Patient left AMA - General Info Date of Service: 10/01/17 Admission Dx/Problem (Free Text: Admission Diagnosis/Problem Admission Diagnosis/Problem Abdominal pain - Review of Systems Systems Review Comment: Unable to obtain, patient left AMA - Patient Data Vitals - Most Recent: Last Vital Signs Temp 37.2 C 09/30/17 20:33 Pulse 90 09/30/17 20:33 Resp 20 09/30/17 20:33 BP 162/96 H 09/30/17 20:33 Pulse Ox 97 09/30/17 20:33 Weight - Most Recent: 102.058 kg I&O - Last 24 hours: Intake & Output 09/30/17 10/01/17 10/01/17 22:59 06:59 14:59 Intake Total 1506 Output Total 75 Balance 1431 Med Orders - Current: Current Medications Discontinued Medications Albuterol/Ipratropium (Duoneb 3.0-0.5 Mg/3 Ml) 3 ml NEB Q4H PRN PRN Reason: Shortness Of Breath/wheezing Bisacodyl (Dulcolax) 5 mg PO DAILY PRN PRN Reason: Constipation Chlordiazepoxide HCl (Librium) 25 mg PO Q8H PRN PRN Reason: Withdrawal Symptoms Chlordiazepoxide HCl (Librium) 0 mg PO ASDIRECTED [facility]; Protocol Chlordiazepoxide HCl (Librium) 50 mg PO Q4H [facility] Stop: 10/01/17 04:01 Last Admin: 09/30/17 13:04 Dose: Not Given Clonidine HCl (Catapres) 0.1 mg PO Q4H PRN PRN Reason: Agitation Docusate Sodium (Colace) 100 mg PO BID PRN PRN Reason: Constipation Last Admin: 09/30/17 15:59 Dose: 100 mg Famotidine (Pepcid) 20 mg PO Q12H [facility] Fluoxetine HCl (Prozac) 40 mg PO DAILY [facility] Last Admin: 09/30/17 09:00 Dose: 40 mg Folic Acid (Folic Acid) 1 mg SUBCUT ONETIME ONE Stop: 09/30/17 07:53 Last Admin: 09/30/17 08:59 Dose: 1 mg Folic Acid (Folic Acid) 1 mg PO DAILY [facility] Stop: 10/03/17 09:01 Hydralazine HCl (Apresoline) 20 mg IVPUSH Q4H PRN PRN Reason: Hypertension Hydromorphone HCl (Dilaudid) 1 mg IVPUSH ONETIME ONE Stop: 09/30/17 03:20 Last Admin: 09/30/17 03:47 Dose: 1 mg Hydromorphone HCl (Dilaudid) 1 mg IVPUSH ONETIME ONE Stop: 09/30/17 04:36 Last Admin: 09/30/17 04:41 Dose: 1 mg Hydromorphone HCl (Dilaudid) 1 mg IVPUSH ONETIME ONE Stop: 09/30/17 05:58 Last Admin: 09/30/17 06:18 Dose: 1 mg Hydromorphone HCl (Dilaudid) 1 mg IVPUSH Q4H PRN PRN Reason: Pain (severe 7-10) Last Admin: 09/30/17 22:28 Dose: 1 mg Ceftriaxone Sodium 1 gm/ (Sodium Chloride) 100 mls @ 200 mls/hr IV ONETIME ONE Stop: 09/30/17 03:51 Last Admin: 09/30/17 03:51 Dose: 200 mls/hr Dextrose/Lactated Ringer's (Dextrose 5%-Lactated Ringers) 1,000 mls @ 999 mls/ hr IV ASDIRECTED [facility] Last Admin: 09/30/17 04:20 Dose: 999 mls/hr Potassium Chloride 10 meq/ (Premix) 100 mls @ 100 mls/hr IV ONETIME ONE Stop: 09/30/17 06:31 Last Admin: 09/30/17 05:47 Dose: 100 mls/hr Dextrose/Sodium Chloride (Dextrose 5%-Normal Saline) 1,000 mls @ 150 mls/hr IV ASDIRECTED [facility] Last Admin: 09/30/17 05:46 Dose: 150 mls/hr Promethazine HCl 12.5 mg/ (Sodium Chloride) 50.5 mls @ 100 mls/hr IV Q6H PRN PRN Reason: Nausea/Vomiting Sodium Chloride (Normal Saline) 1,000 mls @ 125 mls/hr IV ASDIRECTED [facility] Last Admin: 09/30/17 16:57 Dose: 125 mls/hr Ibuprofen (Motrin) 600 mg PO Q6H PRN PRN Reason: Pain (moderate 4-6) Last Admin: 09/30/17 14:46 Dose: 600 mg Lactulose (Cephulac) 40 gm PO ONETIME ONE Stop: 09/30/17 18:49 Last Admin: 09/30/17 19:00 Dose: 40 gm Lorazepam (Ativan) 1 mg IVPUSH ONETIME ONE Stop: 09/30/17 05:58 Last Admin: 09/30/17 06:14 Dose: 1 mg Lorazepam (Ativan) 2 mg IVPUSH Q4H PRN PRN Reason: Seizures Lorazepam (Ativan) 0 mg IVPUSH Q4H PRN; Protocol PRN Reason: Withdrawal Symptoms Last Admin: 09/30/17 09:02 Dose: 1 mg Magnesium Sulfate (Pharmacy To Dose - Magnesium Replacement) 1 dose .XX ASDIRECTED [facility] Metoclopramide HCl (Reglan) 10 mg IVPUSH ONETIME ONE Stop: 09/30/17 03:21 Last Admin: 09/30/17 03:52 Dose: 10 mg Metoprolol Tartrate (Lopressor) 5 mg IVPUSH Q4H PRN PRN Reason: Tachycardia Miscellaneous Information (Remove Patch) 0 ea TRDERM DAILY [facility] Multivitamins (Thera) 1 each PO DAILY [facility] Last Admin: 09/30/17 20:21 Dose: 1 each Nicotine (Habitrol) 21 mg TRDERM DAILY [facility] Last Admin: 09/30/17 09:00 Dose: 21 mg Ondansetron HCl (Zofran) 4 mg IV Q6H PRN PRN Reason: Nausea/Vomiting Last Admin: 09/30/17 17:14 Dose: 4 mg Oxycodone HCl (Oxycodone) 5 mg PO Q4H PRN PRN Reason: Pain (moderate 4-6) Last Admin: 09/30/17 20:21 Dose: 5 mg Pantoprazole Sodium (Protonix Iv) 40 mg IVPUSH ONETIME ONE Stop: 09/30/17 07:50 Last Admin: 09/30/17 08:54 Dose: 40 mg Polyethylene Glycol (Miralax) 17 gm PO DAILY PRN PRN Reason: Constipation Last Admin: 09/30/17 15:59 Dose: 17 gm Potassium Chloride (Pharmacy To Dose - Potassium Replacement) 1 dose .XX ASDIRECTED [facility] Quetiapine Fumarate (Seroquel) 50 mg PO ONETIME ONE Stop: 09/30/17 07:56 Last Admin: 09/30/17 09:00 Dose: Not Given Quetiapine Fumarate (Seroquel) 50 mg PO BEDTIME [facility] Last Admin: 09/30/17 23:46 Dose: Not Given Senna/Docusate Sodium (Senna Plus) 1 tab PO BID PRN PRN Reason: Constipation Thiamine HCl (Vitamin B-1) 100 mg PO DAILY [facility] Topiramate (Topamax) 25 mg PO BID [facility] Last Admin: 09/30/17 20:21 Dose: 25 mg Topiramate (Topamax) 25 mg PO NOW STA Stop: 09/30/17 07:57 Last Admin: 09/30/17 09:00 Dose: 25 mg - Exam Physical Findings Comments:: Unable to examine, patient left AMA at midnight
[2017-10-01] MEDS ORDERED: Thiamine 100 MG Tab PO SCH (09:00)
[2017-10-01] MEDS ORDERED: Folic Acid 1 MG Tab PO SCH (09:00)
[2017-10-01] MEDS ORDERED: chlordiazePOXIDE 25 MG Cap PO SCH (10:00)
[2017-10-02] MEDS ORDERED: chlordiazePOXIDE 25 MG Cap PO SCH (08:00)
[2017-10-03] MEDS ORDERED: chlordiazePOXIDE 25 MG Cap PO SCH (10:00)
== END 2017-10-01 00:08 | disposition left against medical advice (07) | DRG 392 ==
LOC: JD.ED 03:05 → JD.ICU 07:04
PROVIDERS: ADMIT Internal Medicine; ATTEND Internal Medicine
DX: R10.11 Right upper quadrant pain (principal); E87.2 Acidosis; F10.239 Alcohol dependence with withdrawal, unspecified; K21.9 Gastro-esophageal reflux disease without esophagitis; B19.20 Unspecified viral hepatitis C without hepatic coma; F31.9 Bipolar disorder, unspecified; Z91.19 Patient's noncompliance with other medical treatment and regimen; K70.10 Alcoholic hepatitis without ascites; E87.6 Hypokalemia; F17.200 Nicotine dependence, unspecified, uncomplicated; M54.5 Low back pain; R53.81 Other malaise; R53.1 Weakness; K59.00 Constipation, unspecified; R11.2 Nausea with vomiting, unspecified; K29.20 Alcoholic gastritis without bleeding; F41.8 Other specified anxiety disorders; Z79.899 Other long term (current) drug therapy; Z86.11 Personal history of tuberculosis; I45.81 Long QT syndrome; F10.229 Alcohol dependence with intoxication, unspecified
CPT/HCPCS: 36415; 71045; 71045-26; 74018; 74018-26; 80053; 80306; 81001; 82009; 82977; 83605; 83690; 83735; 85025; 85610; 85730; 86140; 93005; 96361; 96365; 96367; 96375; 96376; 99285-25; A9270-GY; C9113; J0696; J1170; J2060; J2405; J2765; J3480; J7030; J7040; J7042

== ENCOUNTER 2017-10-02 15:15 | Emergency (ER) | payer MEDICAID ==
--- NOTE | 2017-10-02 16:33 | EDM.PDOC ---
<Mya Olvera - Last Filed: 10/02/17 17:19> ED HPI GENERAL MEDICAL PROBLEM - General Chief Complaint: ENT Problem Stated Complaint: TOOTH PAIN Time Seen by Provider: 10/02/17 16:20 Source of Information: Reports: Patient History Limitations: Reports: No Limitations - History of Present Illness INITIAL COMMENTS - FREE TEXT/NARRATIVE: Patient is a 42 YO male who presents today with tooth pain. He states this started 2 days ago. He denies any trauma to the area. The pain is located in teeth number 17 and 18 on left bottom jaw and 15 on left upper jaw. Describes the pain as throbbing. He states he has been able to eat as he ate a whole pizza last night. Today he states the pain is so bad that he can't even think. He has been taking ibuprofen for the pain. He states he is not able to take Tylenol due to liver damage from Hep. C. He states he tried to call several dentists today but no one could see him today. He does not have dental insurance. He denies fever, headache, nausea or vomiting. - Related Data Allergies Allergy/AdvReac Type Severity Reaction Status Date / Time No Known Allergies Allergy Verified 09/30/17 08:24 Home Meds: Home Meds FLUoxetine [PROzac] 40 mg PO DAILY 01/29/14 [History] Methylphenidate HCl [Ritalin] 20 mg PO TID 09/30/17 [History] ED ROS ENT - Review of Systems Constitutional: Reports: No Symptoms HEENT: Reports: Dental Pain Respiratory: Reports: No Symptoms Cardiovascular: Reports: No Symptoms Skin: Reports: No Symptoms Neurological: Reports: No Symptoms Psychiatric: Reports: No Symptoms ED EXAM, ENT - Physical Exam Exam: See Below Exam Limited By: No Limitations General Appearance: Alert, WD/WN, Mild Distress Eye Exam: Bilateral Eye: EOMI, PERRL Mouth/Throat: Normal Inspection, Normal Gums, Normal Lips, Dental Pain (mild dental tenderness). No: Bleeding, Dental Abcess, Gum Swelling Head: Normocephalic Respiratory/Chest: No Respiratory Distress Neurological: Alert, Oriented, CN II-XII Intact, Normal Cognition, Normal Gait Psychiatric: Normal Affect, Anxious Skin: Warm, Dry, Intact ED ENT PROCEDURES - Additional/Other Procedure(s) Other (Free Text) Procedure(s): Dental block of upper and lower left around teeth number 15, 17 and 18. Posterior infraorbital block with 0.5 cc bupivacaine. Inverior alveolar nerve block with 0.5 cc bupivacaine. Course - Vital Signs Last Recorded V/S: Last Vital Signs Temp 97.1 F 10/02/17 15:21 Pulse 85 10/02/17 15:21 Resp 18 10/02/17 15:21 BP 126/90 10/02/17 15:21 Pulse Ox 100 10/02/17 15:21 Departure - Departure Disposition: Home, Self-Care 01 Clinical Impression: Dental caries, Dental caries extending into dentin, Pain due to dental caries - Discharge Information Instructions: Dental Abscess, [id number] Referrals: Sophia Simpson NP [Primary Care Provider] - Forms: ED Department Discharge Additional Instructions: Utilize aleve 1 t 2 tablets twice a day for pain. Refrain from chewing on the effected side or drinking excessively cold or warm fluids. Call and make an appointment to be seen by a dentist for definitive treatment. See your primary care provider for continued pain therapy needs. <Eulalio Fernando - Last Filed: 10/02/17 22:56> ED HPI GENERAL MEDICAL PROBLEM - General Source of Information: Reports: Patient History Limitations: Reports: No Limitations Left Tooth/Teeth Pain Score (Numeric/FACES): 10 Past Medical History - Past Health History Medical/Surgical History: Denies Medical/Surgical History HEENT History: Reports: Impaired Vision Respiratory History: Reports: TB Gastrointestinal History: Reports: GERD, Hepatitis Musculoskeletal History: Reports: Arthritis Other Musculoskeletal History: degenerative disk disease Neurological History: Reports: Seizure Psychiatric History: Reports: Bipolar - Infectious Disease History Infectious Disease History: Reports: Hepatitis C - Past Surgical History HEENT Surgical History: Reports: Oral Surgery Social & Family History - Family History Family Medical History: Noncontributory - Tobacco Use Smoking Status *Q: Current Every Day Smoker Years of Tobacco use: 18 Packs/Tins Daily: 1 Used Tobacco, but Quit: No Second Hand Smoke Exposure: No - Caffeine Use Caffeine Use: Reports: Soda - Alcohol Use Days Per Week of Alcohol Use: 1 Number of Drinks Per Day: 6 Total Drinks Per Week: 6 - Recreational Drug Use Recreational Drug Use: No Drug Use in Last 12 Months: No Recreational Drug Type: Reports: Methamphetamine Recreational Drug Use Frequency: Not Used In Over 6 Months Recreational Drug Last Use: 2017 - Living Situation & Occupation Living situation: Reports: , Single Occupation: Unemployed ED ROS ENT - Review of Systems Review Of Systems: See Below ED EXAM, ENT - Physical Exam Exam: See Below Course - Re-Assessments/Exams Free Text/Narrative Re-Assessment/Exam: I personally evaluated the patient. Agree with Mya Arriola. No signs of infection present. Dental block performed with no complications x2. Patient had immediate relief. Will discharge home with instructions as documented. Departure - Departure Time of Disposition: 16:30 Condition: Good
== END 2017-10-02 16:50 | disposition home or self-care (01) ==
LOC: JD.ED 15:15
DX: K02.9 Dental caries, unspecified (principal); F17.210 Nicotine dependence, cigarettes, uncomplicated; Z79.899 Other long term (current) drug therapy
CPT/HCPCS: 64400; 99282-25; 99283

== ENCOUNTER 2017-10-04 09:45 | Inpatient (IN) | payer MEDICAID ==
[2017-10-04] MEDS ORDERED: Sodium Chloride 0.9% 1,000 ML IV ONE ×2 (11:11→13:06)
[2017-10-04] MEDS ORDERED: Docusate Sodium 100 MG Cap PO ONE (11:12)
--- NOTE | 2017-10-04 11:13 | EDM.PDOC ---
ED HPI GENERAL MEDICAL PROBLEM - General Chief Complaint: Abdominal Pain Stated Complaint: [facility] Time Seen by Provider: 10/04/17 10:20 Source of Information: Reports: Patient History Limitations: Reports: No Limitations - History of Present Illness INITIAL COMMENTS - FREE TEXT/NARRATIVE: 42 y/o M with hx ETOH/substance abuse and recent hospitalization for hepatitis in context of recent ETOH binge presents by ambulance for abdominal pain. He was admitted for hepatitis a less than a week ago and left AMA after 24 hours. Returns complaining of ongoing abdominal pain and constipation. Hasn't had a BM since discharge from the hospital. Continues to feel generally weak and poorly. + nausea, no vomiting. Pain is diffuse, worse in R abdomen, worse with eating or walking. Pain is currently moderate. Denies fever. No cough/SOB. No fever. Denies ETOH intake after discharge. Abdominal Pain Score (Numeric/FACES): 6 - Related Data Allergies Allergy/AdvReac Type Severity Reaction Status Date / Time No Known Allergies Allergy Verified 10/04/17 10:08 Home Meds: Home Meds FLUoxetine [PROzac] 40 mg PO DAILY 01/29/14 [History] Clindamycin HCl 150 mg PO QID 10/04/17 [History] Ibuprofen 200 mg PO Q4HR PRN 10/04/17 [History] Past Medical History - Past Health History Medical/Surgical History: Denies Medical/Surgical History HEENT History: Reports: Impaired Vision Respiratory History: Reports: TB Gastrointestinal History: Reports: GERD, Hepatitis Musculoskeletal History: Reports: Arthritis Other Musculoskeletal History: degenerative disk disease Neurological History: Reports: Seizure Psychiatric History: Reports: Addiction, Bipolar, Depression - Infectious Disease History Infectious Disease History: Reports: Hepatitis C - Past Surgical History HEENT Surgical History: Reports: Oral Surgery Social & Family History - Family History Family Medical History: Noncontributory - Tobacco Use Smoking Status *Q: Current Every Day Smoker Years of Tobacco use: 20 Packs/Tins Daily: 1 Used Tobacco, but Quit: No Second Hand Smoke Exposure: No - Caffeine Use Caffeine Use: Reports: Coffee, Energy Drinks, Soda, Tea - Alcohol Use Days Per Week of Alcohol Use: 1 Number of Drinks Per Day: 6 Total Drinks Per Week: 6 - Recreational Drug Use Recreational Drug Use: No Drug Use in Last 12 Months: No Recreational Drug Type: Reports: Methamphetamine Recreational Drug Use Frequency: Not Used In Over 6 Months Recreational Drug Last Use: 2017 - Living Situation & Occupation Living situation: Reports: , Single Occupation: Unemployed ED ROS GENERAL - Review of Systems Review Of Systems: See Below Constitutional: Denies: Fever HEENT: Reports: No Symptoms Respiratory: Denies: Shortness of Breath, Cough Cardiovascular: Denies: Chest Pain Endocrine: Reports: No Symptoms GI/Abdominal: Reports: Abdominal Pain : Reports: No Symptoms Musculoskeletal: Reports: No Symptoms Skin: Reports: No Symptoms Neurological: Reports: No Symptoms Psychiatric: Reports: No Symptoms ED EXAM, GI/ABD - Physical Exam Exam: See Below Exam Limited By: No Limitations General Appearance: Alert, WD/WN, Moderate Distress Eyes: Bilateral: Normal Appearance Ears: Normal External Exam Nose: Normal Inspection Throat/Mouth: Normal Inspection, Normal Voice, No Airway Compromise Head: Atraumatic, Normocephalic Neck: Normal Inspection Respiratory/Chest: No Respiratory Distress, Lungs Clear, Normal Breath Sounds, Chest Non-Tender Cardiovascular: Normal Peripheral Pulses, Regular Rate, Rhythm, No Murmur GI/Abdominal Exam: Soft, No Distention, Other (diffuse TTP, worse in RUQ, no rebound/guarding) Neurological: Alert, Oriented, Normal Cognition, No Motor/Sensory Deficits Psychiatric: Normal Affect, Normal Mood Skin Exam: Warm, Dry, Intact, Normal Color, No Rash Course - Vital Signs Last Recorded V/S: Last Vital Signs Temp 36.6 C 10/04/17 16:26 Pulse 71 10/04/17 16:26 Resp 16 10/04/17 16:26 BP 137/94 H 10/04/17 16:26 Pulse Ox 98 10/04/17 16:26 - Orders/Labs/Meds Orders: Active Orders 24 hr Category Date Time Status Patient Status [ADT] Routine ADT 10/04/17 15:59 Active Height and Weight [RC] 04 Care 10/04/17 15:37 Active Intake and Output [RC] 04,16 Care 10/04/17 15:38 Active Oxygen Therapy [RC] PRN Care 10/04/17 15:37 Active RT Aerosol Therapy [RC] ASDIRECTED Care 10/04/17 15:40 Active Up ad Jonelle [RC] ASDIRECTED Care 10/04/17 15:37 Active VTE/DVT Education [RC] Care 10/04/17 15:37 Active Vital Signs [RC] Q4HR Care 10/04/17 15:37 Active Consult to [employer] [CONS] Routine Cons 10/04/17 15:42 Active Consult to Spiritual Care [CONS] Routine Cons 10/04/17 15:42 Active Clear Liquid Diet [DIET] Diet 10/04/17 Lunch Active C-REACTIVE PROTEIN [CHEM] AM Lab 10/05/17 05:11 Ordered C-REACTIVE PROTEIN [CHEM] AM Lab 10/06/17 05:11 Ordered C-REACTIVE PROTEIN [CHEM] AM Lab 10/07/17 05:11 Ordered CBC WITH AUTO DIFF [HEME] AM Lab 10/05/17 05:11 Ordered HEPATITIS PANEL, ACUTE [REF] Stat Lab 10/04/17 11:36 Received MAGNESIUM [CHEM] AM Lab 10/05/17 05:11 Ordered MAGNESIUM [CHEM] AM Lab 10/06/17 05:11 Ordered MAGNESIUM [CHEM] AM Lab 10/07/17 05:11 Ordered UA W/MICROSCOPIC [URIN] Stat Lab 10/04/17 12:15 Ordered Albuterol/Ipratropium [DuoNeb 3.0-0.5 MG/3 ML] Med 10/04/17 15:37 Active 3 ml NEB Q4H PRN Bisacodyl [Dulcolax] Med 10/04/17 15:46 Active 10 mg RECTAL BID PRN Bisacodyl [Dulcolax] Med 10/04/17 15:37 Active 5 mg PO DAILY PRN Docusate Sodium/Sennosides [Senna Plus] Med 10/04/17 15:37 Active 1 tab PO BID PRN FLUoxetine [PROzac] Med 10/05/17 09:00 Active 40 mg PO DAILY Famotidine [Pepcid] Med 10/04/17 21:00 Active 20 mg IVPUSH BID Ibuprofen [Motrin] Med 10/04/17 15:37 Active 400 mg PO Q6H PRN LORazepam [Ativan] Med 10/04/17 15:37 Active 1 mg IV Q6H PRN LORazepam [Ativan] Med 10/04/17 15:36 Active 2 mg IVPUSH Q4H PRN Lactulose [Cephulac] Med 10/04/17 15:50 Active 20 gm PO TID Magnesium Hydroxide [Milk of Magnesia] Med 10/04/17 15:37 Active 30 ml PO Q12H PRN Magnesium Rep Pharmacy to Dose [Pharmacy to Dose - Med 10/04/17 15:45 Pending Magnesium Replacement] 1 dose .XX ASDIRECTED Methylphenidate [Ritalin] Med 10/04/17 21:00 Active 20 mg PO TID Metoclopramide [Reglan] Med 10/04/17 16:00 Active 5 mg IVPUSH Q6H Metoprolol Tartrate [Lopressor] Med 10/04/17 15:36 Active 5 mg IVPUSH Q4H PRN Morphine Med 10/04/17 11:15 Active 4 mg IVPUSH Q2H PRN Nicotine [Habitrol] Med 10/04/17 15:45 Active 21 mg TRDERM DAILY PRN Ondansetron [Zofran] Med 10/04/17 15:37 Active 4 mg IV Q6H PRN Polyethylene Glycol 3350 [MiraLAX] Med 10/04/17 15:37 Active 17 gm PO DAILY PRN Potassium Rep Pharmacy to Dose [Pharmacy to Dose - Med 10/04/17 15:45 Pending Potassium Replacement] 1 dose .XX ASDIRECTED Promethazine [Phenergan] 12.5 mg Med 10/04/17 15:37 Active Sodium Chloride 0.9% [Normal Saline] 50 ml IV Q6H Remove Patch Med 10/05/17 09:00 Active 1 ea TRDERM DAILY Sennosides [Senna] Med 10/04/17 11:15 Active 17.2 mg PO DAILY Sodium Chloride 0.9% [Normal Saline] 1,000 ml Med 10/04/17 15:45 Active IV ASDIRECTED Temazepam [Restoril] Med 10/04/17 15:37 Active 15 mg PO BEDTIME PRN hydrALAZINE [Apresoline] Med 10/04/17 15:36 Active 20 mg IVPUSH Q4H PRN oxyCODONE Med 10/04/17 15:37 Active 10 mg PO Q4H PRN Resuscitation Status Routine Resus Stat 10/04/17 15:37 Ordered Medication Orders Albuterol/Ipratropium (Duoneb 3.0-0.5 Mg/3 Ml) 3 ml NEB Q4H PRN PRN Reason: Shortness Of Breath/wheezing Bisacodyl (Dulcolax) 5 mg PO DAILY PRN PRN Reason: Constipation Bisacodyl (Dulcolax) 10 mg RECTAL BID PRN PRN Reason: Constipation Famotidine (Pepcid) 20 mg IVPUSH BID [facility] Fluoxetine HCl (Prozac) 40 mg PO DAILY [facility] Hydralazine HCl (Apresoline) 20 mg IVPUSH Q4H PRN PRN Reason: Hypertension Promethazine HCl 12.5 mg/ (Sodium Chloride) 50.5 mls @ 100 mls/hr IV Q6H PRN PRN Reason: Nausea/Vomiting Sodium Chloride (Normal Saline) 1,000 mls @ 125 mls/hr IV ASDIRECTED [facility] Ibuprofen (Motrin) 400 mg PO Q6H PRN PRN Reason: Pain (mild 1-3) Lactulose (Cephulac) 20 gm PO TID [facility] Last Admin: 10/04/17 16:43 Dose: 20 gm Lorazepam (Ativan) 2 mg IVPUSH Q4H PRN PRN Reason: Seizures Lorazepam (Ativan) 1 mg IV Q6H PRN PRN Reason: Anxiety Magnesium Hydroxide (Milk Of Magnesia) 30 ml PO Q12H PRN PRN Reason: Constipation Magnesium Sulfate (Pharmacy To Dose - Magnesium Replacement) 1 dose .XX ASDIRECTED [facility] Methylphenidate HCl (Ritalin) 20 mg PO TID [facility] Metoclopramide HCl (Reglan) 5 mg IVPUSH Q6H [facility] Last Admin: 10/04/17 16:44 Dose: 5 mg Metoprolol Tartrate (Lopressor) 5 mg IVPUSH Q4H PRN PRN Reason: Tachycardia Miscellaneous Information (Remove Patch) 1 ea TRDERM DAILY [facility] Morphine Sulfate (Morphine) 4 mg IVPUSH Q2H PRN PRN Reason: Pain Last Admin: 10/04/17 11:31 Dose: 4 mg Nicotine (Habitrol) 21 mg TRDERM DAILY PRN PRN Reason: Nicotine Ondansetron HCl (Zofran) 4 mg IV Q6H PRN PRN Reason: Nausea/Vomiting Oxycodone HCl (Oxycodone) 10 mg PO Q4H PRN PRN Reason: Pain (moderate 4-6) Polyethylene Glycol (Miralax) 17 gm PO DAILY PRN PRN Reason: Constipation Potassium Chloride (Pharmacy To Dose - Potassium Replacement) 1 dose .XX ASDIRECTED [facility] Senna (Senna) 17.2 mg PO DAILY [facility] Last Admin: 10/04/17 11:30 Dose: 17.2 mg Senna/Docusate Sodium (Senna Plus) 1 tab PO BID PRN PRN Reason: Constipation Temazepam (Restoril) 15 mg PO BEDTIME PRN PRN Reason: Sleep Labs: Laboratory Tests 10/04/17 10/04/17 10/04/17 Range/Units 11:36 11:36 11:36 WBC 6.92 (4.23-9.07) K/mm3 RBC 4.61 L (4.63-6.08) M/mm3 Hgb 14.0 (13.7-17.5) gm/L Hct 41.0 (40.1-51.0) % MCV 88.9 (79.0-92.2) fl MCH 30.4 (25.7-32.2) pg MCHC 34.1 (32.2-35.5) g/dl RDW Std Deviation 42.1 (35.1-43.9) fL Plt Count 158 L (163-337) K/mm3 MPV 10.2 (9.4-12.3) fl Neut % (Auto) 71.4 H (34.0-67.9) % Lymph % (Auto) 16.6 L (21.8-53.1) % [place] % (Auto) 9.8 (5.3-12.2) % Eos % (Auto) 1.6 (0.8-7.0) Baso % (Auto) 0.3 (0.1-1.2) % Neut # (Auto) 4.94 (1.78-5.38) K/mm3 Lymph # (Auto) 1.15 L (1.32-3.57) K/mm3 [place] # (Auto) 0.68 (0.30-0.82) K/mm3 Eos # (Auto) 0.11 (0.04-0.54) K/mm3 Baso # (Auto) 0.02 (0.01-0.08) K/mm3 PT (8.0-13.0) SECONDS INR Sodium 141 (136-145) mEq/L Potassium 3.6 (3.5-5.1) mEq/L Chloride 105 (98-107) mEq/L Carbon Dioxide 26 (21-32) mEq/L Anion Gap 13.6 (5-15) BUN 9 (7-18) mg/dL Creatinine 1.1 (0.7-1.3) mg/dL Est Cr Clr Drug Dosing 100.88 mL/min Estimated GFR (MDRD) > 60 (>60) mL/min BUN/Creatinine Ratio 8.2 L (14-18) Glucose 105 (74-106) mg/dL Lactic Acid (0.4-2.0) mmol/L Calcium 8.9 (8.5-10.1) mg/dL Total Bilirubin 2.6 H (0.2-1.0) mg/dL GGT (15-85) U/L AST 623 H (15-37) U/L ALT 3413 H (16-63) U/L Alkaline Phosphatase 97 (46-116) U/L Total Protein 6.7 (6.4-8.2) g/dl Albumin 3.6 (3.4-5.0) g/dl Globulin 3.1 gm/dL Albumin/Globulin Ratio 1.2 (1-2) Lipase 141 (73-393) U/L Urine Color (Yellow) Urine Appearance (Clear) Urine pH (5.0-8.0) Ur Specific [place] (1.005-1.030) Urine Protein (Negative) Urine Glucose (UA) (Negative) Urine Ketones (Negative) Urine Occult Blood (Negative) Urine Nitrite (Negative) Urine Bilirubin (Negative) Urine Urobilinogen (0.2-1.0) Ur Leukocyte Esterase (Negative) Urine RBC (0-5) /hpf Urine WBC (0-5) /hpf Ur Epithelial Cells (0-5) /hpf Urine Bacteria (FEW) /hpf Urine Mucus (FEW) /hpf Acetaminophen 2 L (10-30) ug/mL Ethyl Alcohol 0.00 (0.00) gm% 10/04/17 10/04/17 10/04/17 Range/Units 11:36 12:15 16:10 WBC (4.23-9.07) K/mm3 RBC (4.63-6.08) M/mm3 Hgb (13.7-17.5) gm/L Hct (40.1-51.0) % MCV (79.0-92.2) fl MCH (25.7-32.2) pg MCHC (32.2-35.5) g/dl RDW Std Deviation (35.1-43.9) fL Plt Count (163-337) K/mm3 MPV (9.4-12.3) fl Neut % (Auto) (34.0-67.9) % Lymph % (Auto) (21.8-53.1) % [place] % (Auto) (5.3-12.2) % Eos % (Auto) (0.8-7.0) Baso % (Auto) (0.1-1.2) % Neut # (Auto) (1.78-5.38) K/mm3 Lymph # (Auto) (1.32-3.57) K/mm3 [place] # (Auto) (0.30-0.82) K/mm3 Eos # (Auto) (0.04-0.54) K/mm3 Baso # (Auto) (0.01-0.08) K/mm3 PT 11.5 (8.0-13.0) SECONDS INR 1.07 Sodium (136-145) mEq/L Potassium (3.5-5.1) mEq/L Chloride (98-107) mEq/L Carbon Dioxide (21-32) mEq/L Anion Gap (5-15) BUN (7-18) mg/dL Creatinine (0.7-1.3) mg/dL Est Cr Clr Drug Dosing mL/min Estimated GFR (MDRD) (>60) mL/min BUN/Creatinine Ratio (14-18) Glucose (74-106) mg/dL Lactic Acid (0.4-2.0) mmol/L Calcium (8.5-10.1) mg/dL Total Bilirubin (0.2-1.0) mg/dL GGT 393 H (15-85) U/L AST (15-37) U/L ALT (16-63) U/L Alkaline Phosphatase (46-116) U/L Total Protein (6.4-8.2) g/dl Albumin (3.4-5.0) g/dl Globulin gm/dL Albumin/Globulin Ratio (1-2) Lipase (73-393) U/L Urine Color Christine H (Yellow) Urine Appearance Clear (Clear) Urine pH 6.0 (5.0-8.0) Ur Specific [place] 1.025 (1.005-1.030) Urine Protein Negative (Negative) Urine Glucose (UA) Negative (Negative) Urine Ketones Negative (Negative) Urine Occult Blood Negative (Negative) Urine Nitrite Negative (Negative) Urine Bilirubin 1+ H (Negative) Urine Urobilinogen 4.0 H (0.2-1.0) Ur Leukocyte Esterase Negative (Negative) Urine RBC Not seen (0-5) /hpf Urine WBC Not seen (0-5) /hpf Ur Epithelial Cells 0-5 (0-5) /hpf Urine Bacteria Not seen (FEW) /hpf Urine Mucus Moderate H (FEW) /hpf Acetaminophen (10-30) ug/mL Ethyl Alcohol (0.00) gm% 10/04/17 Range/Units 16:10 WBC (4.23-9.07) K/mm3 RBC (4.63-6.08) M/mm3 Hgb (13.7-17.5) gm/L Hct (40.1-51.0) % MCV (79.0-92.2) fl MCH (25.7-32.2) pg MCHC (32.2-35.5) g/dl RDW Std Deviation (35.1-43.9) fL Plt Count (163-337) K/mm3 MPV (9.4-12.3) fl Neut % (Auto) (34.0-67.9) % Lymph % (Auto) (21.8-53.1) % [place] % (Auto) (5.3-12.2) % Eos % (Auto) (0.8-7.0) Baso % (Auto) (0.1-1.2) % Neut # (Auto) (1.78-5.38) K/mm3 Lymph # (Auto) (1.32-3.57) K/mm3 [place] # (Auto) (0.30-0.82) K/mm3 Eos # (Auto) (0.04-0.54) K/mm3 Baso # (Auto) (0.01-0.08) K/mm3 PT (8.0-13.0) SECONDS INR Sodium (136-145) mEq/L Potassium (3.5-5.1) mEq/L Chloride (98-107) mEq/L Carbon Dioxide (21-32) mEq/L Anion Gap (5-15) BUN (7-18) mg/dL Creatinine (0.7-1.3) mg/dL Est Cr Clr Drug Dosing mL/min Estimated GFR (MDRD) (>60) mL/min BUN/Creatinine Ratio (14-18) Glucose (74-106) mg/dL Lactic Acid 0.9 (0.4-2.0) mmol/L Calcium (8.5-10.1) mg/dL Total Bilirubin (0.2-1.0) mg/dL GGT (15-85) U/L AST (15-37) U/L ALT (16-63) U/L Alkaline Phosphatase (46-116) U/L Total Protein (6.4-8.2) g/dl Albumin (3.4-5.0) g/dl Globulin gm/dL Albumin/Globulin Ratio (1-2) Lipase (73-393) U/L Urine Color (Yellow) Urine Appearance (Clear) Urine pH (5.0-8.0) Ur Specific [place] (1.005-1.030) Urine Protein (Negative) Urine Glucose (UA) (Negative) Urine Ketones (Negative) Urine Occult Blood (Negative) Urine Nitrite (Negative) Urine Bilirubin (Negative) Urine Urobilinogen (0.2-1.0) Ur Leukocyte Esterase (Negative) Urine RBC (0-5) /hpf Urine WBC (0-5) /hpf Ur Epithelial Cells (0-5) /hpf Urine Bacteria (FEW) /hpf Urine Mucus (FEW) /hpf Acetaminophen (10-30) ug/mL Ethyl Alcohol (0.00) gm% Meds: Medications Generic Name Dose Route Start Last Admin Trade Name Freq PRN Reason Stop Dose Admin Albuterol/Ipratropium 3 ml 10/04/17 15:37 Duoneb 3.0-0.5 Mg/3 Ml NEB Q4H PRN Shortness Of Breath/wheezing Bisacodyl 5 mg 10/04/17 15:37 Dulcolax PO DAILY PRN Constipation Bisacodyl 10 mg 10/04/17 15:46 Dulcolax RECTAL BID PRN Constipation Famotidine 20 mg 10/04/17 21:00 Pepcid IVPUSH BID ARAVIND Fluoxetine HCl 40 mg 10/05/17 09:00 Prozac PO DAILY A[facility] Hydralazine HCl 20 mg 10/04/17 15:36 Apresoline IVPUSH Q4H PRN Hypertension Promethazine HCl 12.5 mg/ 50.5 mls @ 100 mls/hr 10/04/17 15:37 Sodium Chloride IV Q6H PRN Nausea/Vomiting Sodium Chloride 1,000 mls @ 125 mls/hr 10/04/17 15:45 Normal Saline IV ASDIRECTED [facility] Ibuprofen 400 mg 10/04/17 15:37 Motrin PO Q6H PRN Pain (mild 1-3) Lactulose 20 gm 10/04/17 15:50 10/04/17 16:43 Cephulac PO 20 gm TID [facility] Administration Lorazepam 2 mg 10/04/17 15:36 Ativan IVPUSH Q4H PRN Seizures Lorazepam 1 mg 10/04/17 15:37 Ativan IV Q6H PRN Anxiety Magnesium Hydroxide 30 ml 10/04/17 15:37 Milk Of Magnesia PO Q12H PRN Constipation Magnesium Sulfate 1 dose 10/04/17 15:45 Pharmacy To Dose - Magnesium Replacement .XX ASDIRECTED [facility] Methylphenidate HCl 20 mg 10/04/17 21:00 Ritalin PO TID [facility] Metoclopramide HCl 5 mg 10/04/17 16:00 10/04/17 16:44 Reglan IVPUSH 5 mg Q6H [facility] Administration Metoprolol Tartrate 5 mg 10/04/17 15:36 Lopressor IVPUSH Q4H PRN Tachycardia Miscellaneous Information 1 ea 10/05/17 09:00 Remove Patch TRDERM DAILY [facility] Morphine Sulfate 4 mg 10/04/17 11:15 10/04/17 11:31 Morphine IVPUSH 4 mg Q2H PRN Administration Pain Nicotine 21 mg 10/04/17 15:45 Habitrol TRDERM DAILY PRN Nicotine Ondansetron HCl 4 mg 10/04/17 15:37 Zofran IV Q6H PRN Nausea/Vomiting Oxycodone HCl 10 mg 10/04/17 15:37 Oxycodone PO Q4H PRN Pain (moderate 4-6) Polyethylene Glycol 17 gm 10/04/17 15:37 Miralax PO DAILY PRN Constipation Potassium Chloride 1 dose 10/04/17 15:45 Pharmacy To Dose - Potassium Replacement .XX ASDIRECTED [facility] Senna 17.2 mg 10/04/17 11:15 04/07/18 11:30 Senna PO 17.2 mg DAILY ARAVIND Administration Senna/Docusate Sodium 1 tab 10/04/17 15:37 Senna Plus PO BID PRN Constipation Temazepam 15 mg 10/04/17 15:37 Restoril PO BEDTIME PRN Sleep Discontinued Medications Generic Name Dose Route Start Last Admin Trade Name Freq PRN Reason Stop Dose Admin Diatrizoate Meglum/Diatrizoate Sod 90 ml 10/04/17 14:09 10/04/17 14:51 Gastrografin 37% PO 10/04/17 14:10 90 ml ONETIME ONE Administration Docusate Sodium 200 mg 10/04/17 11:12 10/04/17 11:31 Colace PO 10/04/17 11:13 200 mg ONETIME ONE Administration Famotidine 20 mg 10/04/17 15:47 10/04/17 16:43 Pepcid IVPUSH 10/04/17 15:48 20 mg ONETIME ONE Administration Sodium Chloride 1,000 mls @ 1,000 mls/hr 10/04/17 11:11 10/04/17 11:25 Normal Saline IV 10/04/17 12:10 1,000 mls/hr ONETIME ONE Administration Sodium Chloride 1,000 mls @ 1,000 mls/hr 10/04/17 13:06 10/04/17 13:13 Normal Saline IV 10/04/17 14:05 1,000 mls/hr ONETIME ONE Administration Iopamidol 125 ml 10/04/17 14:09 10/04/17 14:51 Isovue-300 (61%) IVPUSH 10/04/17 14:10 125 ml ONETIME ONE Administration Lorazepam 1 mg 10/04/17 13:06 10/04/17 13:14 Ativan IVPUSH 10/04/17 13:07 1 mg ONETIME ONE Administration Ondansetron HCl 4 mg 10/04/17 13:06 10/04/17 13:13 Zofran IVPUSH 10/04/17 13:07 4 mg ONETIME ONE Administration Scopolamine 1.5 mg 10/04/17 15:45 10/04/17 16:44 Transderm-Scop TRDERM 10/04/17 15:46 1.5 mg NOW STA Administration Sodium Chloride 10 ml 10/04/17 14:09 10/04/17 14:51 Saline Flush FLUSH 10/04/17 14:10 10 ml ONETIME ONE Administration - Re-Assessments/Exams Free Text/Narrative Re-Assessment/Exam: 10/04/17 1310. Labs significant for ongoing marked transaminitis with ALT in 3000's. CBC/ chem unremarkable. INR and hepatitis viral panel is pending. His pain is poorly controlled. Discussed with Dr. Manuel who is requests CT a/p. Ordered. 10/04/17 15:27 CT a/p negative for acute abnormality. Discussed with Dr. Manuel who accepts the patient for admission. 10/04/17 16:52 Departure - Departure Time of Disposition: 15:28 Disposition: Admitted As Inpatient 68 Clinical Impression: Acute hepatitis - Discharge Information - My Orders Last 24 Hours: My Active Orders 10/04/17 11:15 Morphine 4 mg IVPUSH Q2H PRN Sennosides [Senna] 17.2 mg PO DAILY 10/04/17 11:36 HEPATITIS PANEL, ACUTE [REF] Stat 10/04/17 12:15 UA W/MICROSCOPIC [URIN] Stat 10/04/17 15:59 Patient Status [ADT] Routine 10/05/17 09:00 Remove Patch 1 ea TRDERM DAILY - Assessment/Plan Last 24 Hours: My Active Orders 10/04/17 11:15 Morphine 4 mg IVPUSH Q2H PRN Sennosides [Senna] 17.2 mg PO DAILY 10/04/17 11:36 HEPATITIS PANEL, ACUTE [REF] Stat 10/04/17 12:15 UA W/MICROSCOPIC [URIN] Stat 10/04/17 15:59 Patient Status [ADT] Routine 10/05/17 09:00 Remove Patch 1 ea TRDERM DAILY
[2017-10-04] MEDS: Sennosides 8.6 MG Tab PO SCH (11:30)
[2017-10-04] MEDS: Morphine 4 MG/ML Syringe IVPUSH PRN ×2 (11:31→21:06)
[2017-10-04 12:09] LABS: ACETAMINOPHEN 2 ug/mL (10-30)
[2017-10-04] MEDS ORDERED: LORazepam 2 MG/ML SDV IVPUSH ONE (13:06)
[2017-10-04] MEDS ORDERED: Ondansetron 4 MG/2 ML SDV IVPUSH ONE (13:06)
[2017-10-04] MEDS ORDERED: Sodium Chloride 0.9% 10 ML Syringe FLUSH ONE (14:09)
[2017-10-04] MEDS ORDERED: Iopamidol 612 MG/ML 150 ML Bottle IVPUSH ONE (14:09)
[2017-10-04] MEDS ORDERED: Diatrizoate Meglumine/Diatrizoate Sodium 37% 120 ML Bottle PO ONE (14:09)
--- NOTE | 2017-10-04 15:12 | CT ---
CT abdomen and pelvis Technique: Multiple axial sections were obtained from above the dome of the diaphragm inferiorly through the pubic symphysis. Intravenous and oral contrast was utilized. Delayed images were also obtained through the bladder. Comparison: Prior abdominal x-ray performed earlier on the same day (10:17 AM). Findings: Visualized lung bases shows nothing acute. Liver and spleen shows no focal parenchymal abnormality. Small low-density abnormality is seen within the right lobe of the liver close to the teres fissure. This measures about 8 mm in size. Second lesion is seen next to the gallbladder measuring 4 mm in size. These findings are too small to characterize by Hounsfield unit measurements most likely represent minimal cysts. Aorta shows no aneurysmal dilatation. No retroperitoneal adenopathy is seen. Appendix is seen which is normal in size. No pelvic mass or adenopathy is seen. No bowel dilatation is seen. Slight increased stool noted within the colon. No free fluid or inflammatory i seen. Small fat-containing left inguinal hernia is noted. Bone window settings were reviewed which shows disc space narrowing with endplate irregularity and sclerosis as well as vacuum phenomena within the L5-S1 disc and endplates. Delayed images shows contrast within distal ureters and within the bladder. Impression: 1. Incidental findings as noted above. Nothing acute is appreciated on CT study of the abdomen and pelvis. Diagnostic code #2
[2017-10-04] MEDS ORDERED: LORazepam 2 MG/ML SDV IVPUSH PRN (15:36)
[2017-10-04] MEDS ORDERED: hydrALAZINE 20 MG/ML SDV IVPUSH PRN (15:36)
[2017-10-04] MEDS ORDERED: Metoprolol Tartrate 5 MG/5 ML SDV IVPUSH PRN (15:36)
[2017-10-04] MEDS ORDERED: Albuterol/Ipratropium 3.0-0.5 MG/3 ML Neb Soln NEB PRN (15:37)
[2017-10-04] MEDS ORDERED: Promethazine 12.5 MG in Sodium Chloride 0.9% 50 ML IV PRN (15:37)
[2017-10-04] MEDS ORDERED: Ondansetron 4 MG/2 ML SDV IV PRN (15:37)
[2017-10-04] MEDS ORDERED: Polyethylene Glycol 3350 Powder 17 GM Packet PO PRN (15:37)
[2017-10-04] MEDS ORDERED: Magnesium Hydroxide 400 MG/5 ML Susp 30 ML Cup PO PRN (15:37)
[2017-10-04] MEDS ORDERED: Bisacodyl 5 MG Tab PO PRN (15:37)
[2017-10-04] MEDS ORDERED: Scopolamine 1.5 MG Transdermal Patch TRDERM STA (15:45)
[2017-10-04] MEDS ORDERED: Bisacodyl 10 MG Supp RECTAL PRN (15:46)
[2017-10-04] MEDS ORDERED: Famotidine 20 MG/2 ML SDV IVPUSH ONE (15:47)
--- NOTE | 2017-10-04 15:56 | PCM.HP ---
H&P History of Present Illness - General Date of Service: 10/04/17 Admit Problem/Dx: Acute Hepatitis and Abdominal Pain Source of Information: Patient, Old Records, Provider, RN Notes Reviewed History Limitations: Reports: No Limitations - History of Present Illness Initial Comments - Free Text/Narative: This is 42 yo white male with past medical hx/o GERD, Hep C Infection, Bipolar Disorder, SA, Depression, Back Pain, Substance Abuse and Hx/o Chronic ETOH Abuse who comes in with similar complaints of lower abdominal pain without radiation. He reports decreased appetite, nausea and dry heaving. He denies having diarrhea and his last bowel movement was 7-8 days ago. No hematemesis, hematochezia or melena. He further denies drinking or eating bad foods. His intake has not been good. Patient was here 3 days ago for ETOH detoxification and at the same time he was having abdominal complaints. We were trying to help him at that time to have a bowel movement but decided to leave AMA. Today, he comes back with similar complaints of not been able to have a bowel movement. His initial work up in ED shows a CBC remarkable for RBC of 4.61, Platelet of 158, Neutrophils of 71.4% and Lymphocytes of 16.6%. His chemistry is significant for Total bilirubin of 2.6, AST of 623, and AST of 3413. His UA is pos for 4+ urobilinogen. His acetaminophen level is 2 and VIV is 0. His abdominal x-ray shows increased stool. His Abdominal/Pelvis CT scan shows no acute abnormal findings. He is being admitted for medical management of constipation. Abdominal Pain Score (Numeric/FACES): 6 - Related Data Allergies/Adverse Reactions: Allergies Allergy/AdvReac Type Severity Reaction Status Date / Time No Known Allergies Allergy Verified 10/04/17 10:08 Home Medications: Home Meds FLUoxetine [PROzac] 40 mg PO DAILY 01/29/14 [History] Clindamycin HCl 150 mg PO QID 10/04/17 [History] Ibuprofen 200 mg PO Q4HR PRN 10/04/17 [History] Past Medical History - Past Health History Medical/Surgical History: Denies Medical/Surgical History HEENT History: Reports: Impaired Vision Respiratory History: Reports: TB Gastrointestinal History: Reports: GERD, Hepatitis Musculoskeletal History: Reports: Arthritis Other Musculoskeletal History: degenerative disk disease Neurological History: Reports: Seizure Psychiatric History: Reports: Addiction, Bipolar, Depression - Infectious Disease History Infectious Disease History: Reports: Hepatitis C - Past Surgical History HEENT Surgical History: Reports: Oral Surgery Social & Family History - Family History Family Medical History: Noncontributory - Tobacco Use Smoking Status *Q: Current Every Day Smoker Years of Tobacco use: 20 Packs/Tins Daily: 1 Used Tobacco, but Quit: No Second Hand Smoke Exposure: No - Caffeine Use Caffeine Use: Reports: Coffee, Energy Drinks, Soda, Tea - Alcohol Use Days Per Week of Alcohol Use: 1 Number of Drinks Per Day: 6 Total Drinks Per Week: 6 - Recreational Drug Use Recreational Drug Use: No Drug Use in Last 12 Months: No Recreational Drug Type: Reports: Methamphetamine Recreational Drug Use Frequency: Not Used In Over 6 Months Recreational Drug Last Use: 2016 - Living Situation & Occupation Living situation: Reports: , Single Occupation: Unemployed H&P Review of Systems - Review of Systems: Review Of Systems: See Below General: Reports: Decreased Appetite. Denies: Fever, Chills, Malaise, Weakness , Fatigue HEENT: Reports: No Symptoms Pulmonary: Denies: Shortness of Breath Cardiovascular: Denies: Chest Pain, Palpitations, Dyspnea on Exertion, Lightheadedness Gastrointestinal: Reports: Abdominal Pain, Constipation, Decreased Appetite, Flatus, Nausea. Denies: Diarrhea, Difficulty Swallowing, Stool Incontinence, Vomiting Genitourinary: Reports: No Symptoms Musculoskeletal: Reports: No Symptoms Skin: Denies: Cyanosis, Jaundice, Pallor, Diaphoresis, Rash Psychiatric: Denies: Depression, Agitation, Hallucinations, Suicidal Ideation Neurological: Denies: Dizziness, Seizure, Tremors, Difficulty Walking, Weakness , Change in Speech Hematologic/Lymphatic: Reports: No Symptoms Exam - Exam Exam: See Below - Vital Signs Vital Signs: Last Vital Signs Temp 37.1 C 10/04/17 10:06 Pulse 79 10/04/17 10:06 Resp 20 10/04/17 10:06 BP 145/86 H 10/04/17 10:06 Pulse Ox 100 10/04/17 10:06 Weight: 99.79 kg - Exam General: Alert, Oriented, Cooperative, Mild Distress, Moderate Distress HEENT: Conjunctiva Clear, EACs Clear, EOMI, Hearing Intact, Mucosa Moist & [place] , Nares Patent, Normal Nasal Septum, Posterior Pharynx Clear, Pupils Equal, Pupils Reactive, TMs Clear Neck: Supple, Trachea Midline, +2 Carotid Pulse wo Bruit, Full Range of Motion Lungs: Clear to Auscultation, Normal Respiratory Effort Cardiovascular: Regular Rate, Regular Rhythm GI/Abdominal Exam: Normal Bowel Sounds, Soft, No Organomegaly, No Distention, No Abnormal Bruit, No Mass, Tender (lower abdomen). No: Distended, Guarding, Rigid, Rebound, Mass, Hepatomegaly (Male) Exam: Deferred Rectal (Males) Exam: Deferred Back Exam: Normal Inspection, Full Range of Motion Extremities: Normal Inspection, Normal Range of Motion, Non-Tender, No Pedal Edema, Normal Capillary Refill Peripheral Pulses: 3+: Posterior Tibial (L), Posterior Tibial (R), Dorsalis Pedis (L), Dorsalis Pedis (R) Skin: Warm, Dry, Intact Neuro Extensive - Mental Status: Oriented x3, Normal Cognition, Memory Intact Neuro Extensive - Motor, Sensory, Reflexes: CN II-XII Intact, Normal Gait DTR: 2+: Patella (L), Patella (R) Psychiatric: Alert, Normal Affect, Normal Mood - Patient Data Lab Results Last 24 hrs: Laboratory Results - last 24 hr 10/04/17 10/04/17 10/04/17 Range/Units 11:36 11:36 11:36 WBC 6.92 (4.23-9.07) K/mm3 RBC 4.61 L (4.63-6.08) M/mm3 Hgb 14.0 (13.7-17.5) gm/L Hct 41.0 (40.1-51.0) % MCV 88.9 (79.0-92.2) fl MCH 30.4 (25.7-32.2) pg MCHC 34.1 (32.2-35.5) g/dl RDW Std Deviation 42.1 (35.1-43.9) fL Plt Count 158 L (163-337) K/mm3 MPV 10.2 (9.4-12.3) fl Neut % (Auto) 71.4 H (34.0-67.9) % Lymph % (Auto) 16.6 L (21.8-53.1) % [place] % (Auto) 9.8 (5.3-12.2) % Eos % (Auto) 1.6 (0.8-7.0) Baso % (Auto) 0.3 (0.1-1.2) % Neut # (Auto) 4.94 (1.78-5.38) K/mm3 Lymph # (Auto) 1.15 L (1.32-3.57) K/mm3 [place] # (Auto) 0.68 (0.30-0.82) K/mm3 Eos # (Auto) 0.11 (0.04-0.54) K/mm3 Baso # (Auto) 0.02 (0.01-0.08) K/mm3 PT (8.0-13.0) SECONDS INR Sodium 141 (136-145) mEq/L Potassium 3.6 (3.5-5.1) mEq/L Chloride 105 (98-107) mEq/L Carbon Dioxide 26 (21-32) mEq/L Anion Gap 13.6 (5-15) BUN 9 (7-18) mg/dL Creatinine 1.1 (0.7-1.3) mg/dL Est Cr Clr Drug Dosing 100.88 mL/min Estimated GFR (MDRD) > 60 (>60) mL/min BUN/Creatinine Ratio 8.2 L (14-18) Glucose 105 (74-106) mg/dL Calcium 8.9 (8.5-10.1) mg/dL Total Bilirubin 2.6 H (0.2-1.0) mg/dL AST 623 H (15-37) U/L ALT 3413 H (16-63) U/L Alkaline Phosphatase 97 (46-116) U/L Total Protein 6.7 (6.4-8.2) g/dl Albumin 3.6 (3.4-5.0) g/dl Globulin 3.1 gm/dL Albumin/Globulin Ratio 1.2 (1-2) Lipase 141 (73-393) U/L Urine Color (Yellow) Urine Appearance (Clear) Urine pH (5.0-8.0) Ur Specific [place] (1.005-1.030) Urine Protein (Negative) Urine Glucose (UA) (Negative) Urine Ketones (Negative) Urine Occult Blood (Negative) Urine Nitrite (Negative) Urine Bilirubin (Negative) Urine Urobilinogen (0.2-1.0) Ur Leukocyte Esterase (Negative) Urine RBC (0-5) /hpf Urine WBC (0-5) /hpf Ur Epithelial Cells (0-5) /hpf Urine Bacteria (FEW) /hpf Urine Mucus (FEW) /hpf Acetaminophen 2 L (10-30) ug/mL Ethyl Alcohol 0.00 (0.00) gm% 10/04/17 10/04/17 Range/Units 11:36 12:15 WBC (4.23-9.07) K/mm3 RBC (4.63-6.08) M/mm3 Hgb (13.7-17.5) gm/L Hct (40.1-51.0) % MCV (79.0-92.2) fl MCH (25.7-32.2) pg MCHC (32.2-35.5) g/dl RDW Std Deviation (35.1-43.9) fL Plt Count (163-337) K/mm3 MPV (9.4-12.3) fl Neut % (Auto) (34.0-67.9) % Lymph % (Auto) (21.8-53.1) % [place] % (Auto) (5.3-12.2) % Eos % (Auto) (0.8-7.0) Baso % (Auto) (0.1-1.2) % Neut # (Auto) (1.78-5.38) K/mm3 Lymph # (Auto) (1.32-3.57) K/mm3 [place] # (Auto) (0.30-0.82) K/mm3 Eos # (Auto) (0.04-0.54) K/mm3 Baso # (Auto) (0.01-0.08) K/mm3 PT 11.5 (8.0-13.0) SECONDS INR 1.07 Sodium (136-145) mEq/L Potassium (3.5-5.1) mEq/L Chloride (98-107) mEq/L Carbon Dioxide (21-32) mEq/L Anion Gap (5-15) BUN (7-18) mg/dL Creatinine (0.7-1.3) mg/dL Est Cr Clr Drug Dosing mL/min Estimated GFR (MDRD) (>60) mL/min BUN/Creatinine Ratio (14-18) Glucose (74-106) mg/dL Calcium (8.5-10.1) mg/dL Total Bilirubin (0.2-1.0) mg/dL AST (15-37) U/L ALT (16-63) U/L Alkaline Phosphatase (46-116) U/L Total Protein (6.4-8.2) g/dl Albumin (3.4-5.0) g/dl Globulin gm/dL Albumin/Globulin Ratio (1-2) Lipase (73-393) U/L Urine Color [place] H (Yellow) Urine Appearance Clear (Clear) Urine pH 6.0 (5.0-8.0) Ur Specific [place] 1.025 (1.005-1.030) Urine Protein Negative (Negative) Urine Glucose (UA) Negative (Negative) Urine Ketones Negative (Negative) Urine Occult Blood Negative (Negative) Urine Nitrite Negative (Negative) Urine Bilirubin 1+ H (Negative) Urine Urobilinogen 4.0 H (0.2-1.0) Ur Leukocyte Esterase Negative (Negative) Urine RBC Not seen (0-5) /hpf Urine WBC Not seen (0-5) /hpf Ur Epithelial Cells 0-5 (0-5) /hpf Urine Bacteria Not seen (FEW) /hpf Urine Mucus Moderate H (FEW) /hpf Acetaminophen (10-30) ug/mL Ethyl Alcohol (0.00) gm% Result Diagrams: 10/05/17 05:54 10/04/17 11:36 Problem List Initiated/Reviewed/Updated: Yes Orders Last 24hrs: Active Orders 24 hr Category Date Time Status Height and Weight [RC] DAILY Care 10/04/17 15:37 Ordered Intake and Output [RC] QSHIFT Care 10/04/17 15:38 Ordered Oxygen Therapy [RC] PRN Care 10/04/17 15:37 Ordered RT Aerosol Therapy [RC] ASDIRECTED Care 10/04/17 15:40 Ordered Up ad [place]elle [RC] ASDIRECTED Care 10/04/17 15:37 Ordered VTE/DVT Education [RC] PER UNIT ROUTINE Care 10/04/17 15:37 Ordered Vital Signs [RC] Q4H Care 10/04/17 15:37 Ordered Consult to House Repairer [CONS] Routine Cons 10/04/17 15:42 Ordered Consult to Spiritual Care [CONS] Routine Cons 10/04/17 15:42 Ordered Clear Liquid Diet [DIET] Diet 10/04/17 Lunch Ordered Abdomen 2V AP Flat Upright [CR] Stat Exams 10/04/17 10:20 Taken C-REACTIVE PROTEIN [CHEM] AM Lab 10/05/17 05:11 Ordered C-REACTIVE PROTEIN [CHEM] AM Lab 10/06/17 05:11 Ordered C-REACTIVE PROTEIN [CHEM] AM Lab 10/07/17 05:11 Ordered CBC WITH AUTO DIFF [HEME] AM Lab 10/05/17 05:11 Ordered GAMMA GLUTAMYL TRANSFERASE,GGT [CHEM] Stat Lab 10/04/17 15:53 Ordered HEPATITIS PANEL, ACUTE [REF] Stat Lab 10/04/17 11:36 Received LACTIC ACID [CHEM] Stat Lab 10/04/17 15:53 Ordered MAGNESIUM [CHEM] AM Lab 10/05/17 05:11 Ordered MAGNESIUM [CHEM] AM Lab 10/06/17 05:11 Ordered MAGNESIUM [CHEM] AM Lab 10/07/17 05:11 Ordered UA W/MICROSCOPIC [URIN] Stat Lab 10/04/17 12:15 Ordered Albuterol/Ipratropium [DuoNeb 3.0-0.5 MG/3 ML] Med 10/04/17 15:37 Ordered 3 ml NEB Q4H PRN Bisacodyl [Dulcolax] Med 10/04/17 15:46 Ordered 10 mg RECTAL BID PRN Bisacodyl [Dulcolax] Med 10/04/17 15:37 Ordered 5 mg PO DAILY PRN Docusate Sodium/Sennosides [Senna Plus] Med 10/04/17 15:37 Ordered 1 tab PO BID PRN FLUoxetine [PROzac] Med 10/05/17 09:00 Ordered 40 mg PO DAILY Famotidine [Pepcid] Med 10/04/17 21:00 Ordered 20 mg IVPUSH BID Ibuprofen [Motrin] Med 10/04/17 15:37 Ordered 400 mg PO Q6H PRN LORazepam [Ativan] Med 10/04/17 15:37 Ordered 1 mg IV Q6H PRN LORazepam [Ativan] Med 10/04/17 15:36 Ordered 2 mg IVPUSH Q4H PRN Lactulose [Cephulac] Med 10/04/17 15:50 Ordered 20 gm PO TID Magnesium Hydroxide [Milk of Magnesia] Med 10/04/17 15:37 Ordered 30 ml PO Q12H PRN Magnesium Rep Pharmacy to Dose [Pharmacy to Dose - Med 10/04/17 15:45 Ordered Magnesium Replacement] 1 dose .XX ASDIRECTED Methylphenidate HCl [Ritalin] Med 10/04/17 21:00 Ordered 20 mg PO TID Metoclopramide [Reglan] Med 10/04/17 16:00 Ordered 5 mg IVPUSH Q6H Metoprolol Tartrate [Lopressor] Med 10/04/17 15:36 Ordered 5 mg IVPUSH Q4H PRN Morphine Med 10/04/17 11:15 Active 4 mg IVPUSH Q2H PRN Nicotine [Habitrol] Med 10/04/17 15:45 Ordered 21 mg TRDERM DAILY PRN Ondansetron [Zofran] Med 10/04/17 15:37 Ordered 4 mg IV Q6H PRN Polyethylene Glycol 3350 [MiraLAX] Med 10/04/17 15:37 Ordered 17 gm PO DAILY PRN Potassium Rep Pharmacy to Dose [Pharmacy to Dose - Med 10/04/17 15:45 Ordered Potassium Replacement] 1 dose .XX ASDIRECTED Promethazine [Phenergan] 12.5 mg Med 10/04/17 15:37 Ordered Sodium Chloride 0.9% [Normal Saline] 50 ml IV Q6H Scopolamine [Transderm-Scop] Med 10/04/17 15:45 Stat 1.5 mg TRDERM NOW STA Sennosides [Senna] Med 10/04/17 11:15 Active 17.2 mg PO DAILY Sodium Chloride 0.9% @ 125 MLS/HR (1000ml) Med 10/04/17 15:45 Ordered Sodium Chloride 0.9% [Normal Saline] 1,000 ml IV ASDIRECTED Temazepam [Restoril] Med 10/04/17 15:37 Ordered 15 mg PO BEDTIME PRN hydrALAZINE [Apresoline] Med 10/04/17 15:36 Ordered 20 mg IVPUSH Q4H PRN oxyCODONE Med 10/04/17 15:37 Ordered 10 mg PO Q4H PRN Resuscitation Status Routine Resus Stat 10/04/17 15:37 Ordered Medication Orders Albuterol/Ipratropium (Duoneb 3.0-0.5 Mg/3 Ml) 3 ml NEB Q4H PRN PRN Reason: Shortness Of Breath/wheezing Bisacodyl (Dulcolax) 5 mg PO DAILY PRN PRN Reason: Constipation Bisacodyl (Dulcolax) 10 mg RECTAL BID PRN PRN Reason: Constipation Famotidine (Pepcid) 20 mg IVPUSH BID [facility] Hydralazine HCl (Apresoline) 20 mg IVPUSH Q4H PRN PRN Reason: Hypertension Promethazine HCl 12.5 mg/ (Sodium Chloride) 50.5 mls @ 100 mls/hr IV Q6H PRN PRN Reason: Nausea/Vomiting Sodium Chloride (Normal Saline) 1,000 mls @ 125 mls/hr IV ASDIRECTED [facility] Ibuprofen (Motrin) 400 mg PO Q6H PRN PRN Reason: Pain (mild 1-3) Lactulose (Cephulac) 20 gm PO TID [facility] Lorazepam (Ativan) 2 mg IVPUSH Q4H PRN PRN Reason: Seizures Lorazepam (Ativan) 1 mg IV Q6H PRN PRN Reason: Anxiety Magnesium Hydroxide (Milk Of Magnesia) 30 ml PO Q12H PRN PRN Reason: Constipation Magnesium Sulfate (Pharmacy To Dose - Magnesium Replacement) 1 dose .XX ASDIRECTED [facility] Metoclopramide HCl (Reglan) 5 mg IVPUSH Q6H [facility] Metoprolol Tartrate (Lopressor) 5 mg IVPUSH Q4H PRN PRN Reason: Tachycardia Morphine Sulfate (Morphine) 4 mg IVPUSH Q2H PRN PRN Reason: Pain Last Admin: 10/04/17 11:31 Dose: 4 mg Nicotine (Habitrol) 21 mg TRDERM DAILY PRN PRN Reason: Nicotine Non-Formulary Medication (Fluoxetine [Prozac]) 40 mg PO DAILY [facility] Non-Formulary Medication (Methylphenidate Hcl [Ritalin]) 20 mg PO TID [facility] Ondansetron HCl (Zofran) 4 mg IV Q6H PRN PRN Reason: Nausea/Vomiting Oxycodone HCl (Oxycodone) 10 mg PO Q4H PRN PRN Reason: Pain (moderate 4-6) Polyethylene Glycol (Miralax) 17 gm PO DAILY PRN PRN Reason: Constipation Potassium Chloride (Pharmacy To Dose - Potassium Replacement) 1 dose .XX ASDIRECTED [facility] Scopolamine (Transderm-Scop) 1.5 mg TRDERM NOW STA Stop: 04/07/18 15:46 Senna (Senna) 17.2 mg PO DAILY [facility] Last Admin: 10/04/17 11:30 Dose: 17.2 mg Senna/Docusate Sodium (Senna Plus) 1 tab PO BID PRN PRN Reason: Constipation Temazepam (Restoril) 15 mg PO BEDTIME PRN PRN Reason: Sleep Assessment/Plan Comment:: Assessment/Plan: Acute Abdominal Pain - ETOH Gastritis vs Severe Constipation - Risk factors: GERD and ETOH Abuse - Has been drinking heavily for the past 3 days - His bowel movement was 7-8 days ago - We were trying to help him on his initial admission but left AMA - He is passing gas - PPI IV x1 then H2B Transaminitis - AST 623/ALT 3413 and GGT 313 - Carries a hx/o Hep C infection; not on treatment - His PCP in the process of referring him [place] Chronic: ETOH Abuse GERD Bipolar Disorder Depression/Anxiety Back Pain Hx/o Poly-Substance Abuse Marital Discord/Disharmony Plan: Admit to Medical Floor Routine AM Labs Resume Home Meds Bowel Prep Clear liquid diet and advance as tolerated Hold GS consult for now SW/CM d/c planning Code Status: 1
--- NOTE | 2017-10-04 16:12 | CR ---
Abdomen: Supine and upright views of the abdomen were obtained. Comparison: Prior abdominal x-ray of 09/30/17. Bowel gas pattern appears within normal limits. No abnormal calcifications or soft tissue abnormality is seen. Surgical clips are seen within the left groin. No free air is seen. Impression: 1. Nothing acute is seen on two-view abdominal x-ray. Diagnostic code #1
[2017-10-04] MEDS: Lactulose Soln 10 GM/15 ML 30 ML UD Cup PO SCH ×2 (16:43→21:44)
[2017-10-04] MEDS: Metoclopramide 10 MG/2 ML SDV IVPUSH SCH ×2 (16:44→21:45)
[2017-10-04] MEDS: Sodium Chloride 0.9% 1,000 ML IV SCH (16:58)
[2017-10-04] MEDS: Nicotine 21 MG/24 Hr Patch TRDERM PRN (17:05)
[2017-10-04] MEDS: LORazepam 2 MG/ML SDV IV PRN (17:18)
[2017-10-04] MEDS: Ibuprofen 400 MG Tab PO PRN (17:18)
[2017-10-04] MEDS: Famotidine 20 MG/2 ML SDV IVPUSH SCH (21:00)
[2017-10-04] MEDS ORDERED: Methylphenidate 10 MG Tab PO SCH (21:00)
[2017-10-05] MEDS: Sodium Chloride 0.9% 1,000 ML IV SCH ×2 (00:37→09:38)
[2017-10-05] MEDS: Temazepam 15 MG Cap PO PRN ×2 (00:37→23:03)
[2017-10-05] MEDS: oxyCODONE 5 MG Tab PO PRN ×5 (02:02→22:53)
--- NOTE | 2017-10-05 04:26 | PCM.PN ---
- General Info Date of Service: 10/05/17 Admission Dx/Problem (Free Text): Acute Hepatitis and Abdominal Pain Subjective Update: Follow Up Functional Status: Reports: Pain Controlled, Tolerating Diet, Ambulating, Urinating. Denies: New Symptoms - Review of Systems General: Denies: Fever, Weakness, Fatigue, Malaise, Chills HEENT: Reports: No Symptoms Pulmonary: Reports: Shortness of Breath Cardiovascular: Denies: Chest Pain, Dyspnea on Exertion Gastrointestinal: Reports: Abdominal Pain, Diarrhea, Flatus. Denies: Constipation, Decreased Appetite, Nausea, Vomiting Genitourinary: Reports: No Symptoms Musculoskeletal: Reports: No Symptoms Skin: Denies: Cyanosis, Jaundice, Mottled, Pallor, Bruising Neurological: Denies: Confusion, Difficulty Walking, Weakness, Gait Disturbance Psychiatric: Denies: Depression, Anxiety, Agitation, Hallucinations, Suicidal Ideation Systems Review Comment:: No significant overnight or acute issues. He had a huge bowel movement last night and 2 more this morning. He feels much better today and tolerating current diet. He has no new complaints. - Patient Data Vitals - Most Recent: Last Vital Signs Temp 36.7 C 10/04/17 21:00 Pulse 74 10/04/17 21:00 Resp 16 10/04/17 21:00 BP 139/95 H 10/04/17 21:00 Pulse Ox 100 10/04/17 21:00 Weight - Most Recent: 99.79 kg Lab Results Last 24 Hours: Laboratory Results - last 24 hr 10/04/17 10/04/17 10/04/17 Range/Units 11:36 11:36 11:36 WBC 6.92 (4.23-9.07) K/mm3 RBC 4.61 L (4.63-6.08) M/mm3 Hgb 14.0 (13.7-17.5) gm/L Hct 41.0 (40.1-51.0) % MCV 88.9 (79.0-92.2) fl MCH 30.4 (25.7-32.2) pg MCHC 34.1 (32.2-35.5) g/dl RDW Std Deviation 42.1 (35.1-43.9) fL Plt Count 158 L (163-337) K/mm3 MPV 10.2 (9.4-12.3) fl Neut % (Auto) 71.4 H (34.0-67.9) % Lymph % (Auto) 16.6 L (21.8-53.1) % [place] % (Auto) 9.8 (5.3-12.2) % Eos % (Auto) 1.6 (0.8-7.0) Baso % (Auto) 0.3 (0.1-1.2) % Neut # (Auto) 4.94 (1.78-5.38) K/mm3 Lymph # (Auto) 1.15 L (1.32-3.57) K/mm3 [place] # (Auto) 0.68 (0.30-0.82) K/mm3 Eos # (Auto) 0.11 (0.04-0.54) K/mm3 Baso # (Auto) 0.02 (0.01-0.08) K/mm3 PT (8.0-13.0) SECONDS INR Sodium 141 (136-145) mEq/L Potassium 3.6 (3.5-5.1) mEq/L Chloride 105 (98-107) mEq/L Carbon Dioxide 26 (21-32) mEq/L Anion Gap 13.6 (5-15) BUN 9 (7-18) mg/dL Creatinine 1.1 (0.7-1.3) mg/dL Est Cr Clr Drug Dosing 100.88 mL/min Estimated GFR (MDRD) > 60 (>60) mL/min BUN/Creatinine Ratio 8.2 L (14-18) Glucose 105 (74-106) mg/dL Lactic Acid (0.4-2.0) mmol/L Calcium 8.9 (8.5-10.1) mg/dL Total Bilirubin 2.6 H (0.2-1.0) mg/dL GGT (15-85) U/L AST 623 H (15-37) U/L ALT 3413 H (16-63) U/L Alkaline Phosphatase 97 (46-116) U/L Total Protein 6.7 (6.4-8.2) g/dl Albumin 3.6 (3.4-5.0) g/dl Globulin 3.1 gm/dL Albumin/Globulin Ratio 1.2 (1-2) Lipase 141 (73-393) U/L Urine Color (Yellow) Urine Appearance (Clear) Urine pH (5.0-8.0) Ur Specific [place] (1.005-1.030) Urine Protein (Negative) Urine Glucose (UA) (Negative) Urine Ketones (Negative) Urine Occult Blood (Negative) Urine Nitrite (Negative) Urine Bilirubin (Negative) Urine Urobilinogen (0.2-1.0) Ur Leukocyte Esterase (Negative) Urine RBC (0-5) /hpf Urine WBC (0-5) /hpf Ur Epithelial Cells (0-5) /hpf Urine Bacteria (FEW) /hpf Urine Mucus (FEW) /hpf Acetaminophen 2 L (10-30) ug/mL Ethyl Alcohol 0.00 (0.00) gm% 10/04/17 10/04/17 10/04/17 Range/Units 11:36 12:15 16:10 WBC (4.23-9.07) K/mm3 RBC (4.63-6.08) M/mm3 Hgb (13.7-17.5) gm/L Hct (40.1-51.0) % MCV (79.0-92.2) fl MCH (25.7-32.2) pg MCHC (32.2-35.5) g/dl RDW Std Deviation (35.1-43.9) fL Plt Count (163-337) K/mm3 MPV (9.4-12.3) fl Neut % (Auto) (34.0-67.9) % Lymph % (Auto) (21.8-53.1) % [place] % (Auto) (5.3-12.2) % Eos % (Auto) (0.8-7.0) Baso % (Auto) (0.1-1.2) % Neut # (Auto) (1.78-5.38) K/mm3 Lymph # (Auto) (1.32-3.57) K/mm3 [place] # (Auto) (0.30-0.82) K/mm3 Eos # (Auto) (0.04-0.54) K/mm3 Baso # (Auto) (0.01-0.08) K/mm3 PT 11.5 (8.0-13.0) SECONDS INR 1.07 Sodium (136-145) mEq/L Potassium (3.5-5.1) mEq/L Chloride (98-107) mEq/L Carbon Dioxide (21-32) mEq/L Anion Gap (5-15) BUN (7-18) mg/dL Creatinine (0.7-1.3) mg/dL Est Cr Clr Drug Dosing mL/min Estimated GFR (MDRD) (>60) mL/min BUN/Creatinine Ratio (14-18) Glucose (74-106) mg/dL Lactic Acid (0.4-2.0) mmol/L Calcium (8.5-10.1) mg/dL Total Bilirubin (0.2-1.0) mg/dL GGT 393 H (15-85) U/L AST (15-37) U/L ALT (16-63) U/L Alkaline Phosphatase (46-116) U/L Total Protein (6.4-8.2) g/dl Albumin (3.4-5.0) g/dl Globulin gm/dL Albumin/Globulin Ratio (1-2) Lipase (73-393) U/L Urine Color Christine H (Yellow) Urine Appearance Clear (Clear) Urine pH 6.0 (5.0-8.0) Ur Specific [place] 1.025 (1.005-1.030) Urine Protein Negative (Negative) Urine Glucose (UA) Negative (Negative) Urine Ketones Negative (Negative) Urine Occult Blood Negative (Negative) Urine Nitrite Negative (Negative) Urine Bilirubin 1+ H (Negative) Urine Urobilinogen 4.0 H (0.2-1.0) Ur Leukocyte Esterase Negative (Negative) Urine RBC Not seen (0-5) /hpf Urine WBC Not seen (0-5) /hpf Ur Epithelial Cells 0-5 (0-5) /hpf Urine Bacteria Not seen (FEW) /hpf Urine Mucus Moderate H (FEW) /hpf Acetaminophen (10-30) ug/mL Ethyl Alcohol (0.00) gm% 10/04/17 Range/Units 16:10 WBC (4.23-9.07) K/mm3 RBC (4.63-6.08) M/mm3 Hgb (13.7-17.5) gm/L Hct (40.1-51.0) % MCV (79.0-92.2) fl MCH (25.7-32.2) pg MCHC (32.2-35.5) g/dl RDW Std Deviation (35.1-43.9) fL Plt Count (163-337) K/mm3 MPV (9.4-12.3) fl Neut % (Auto) (34.0-67.9) % Lymph % (Auto) (21.8-53.1) % [place] % (Auto) (5.3-12.2) % Eos % (Auto) (0.8-7.0) Baso % (Auto) (0.1-1.2) % Neut # (Auto) (1.78-5.38) K/mm3 Lymph # (Auto) (1.32-3.57) K/mm3 [place] # (Auto) (0.30-0.82) K/mm3 Eos # (Auto) (0.04-0.54) K/mm3 Baso # (Auto) (0.01-0.08) K/mm3 PT (8.0-13.0) SECONDS INR Sodium (136-145) mEq/L Potassium (3.5-5.1) mEq/L Chloride (98-107) mEq/L Carbon Dioxide (21-32) mEq/L Anion Gap (5-15) BUN (7-18) mg/dL Creatinine (0.7-1.3) mg/dL Est Cr Clr Drug Dosing mL/min Estimated GFR (MDRD) (>60) mL/min BUN/Creatinine Ratio (14-18) Glucose (74-106) mg/dL Lactic Acid 0.9 (0.4-2.0) mmol/L Calcium (8.5-10.1) mg/dL Total Bilirubin (0.2-1.0) mg/dL GGT (15-85) U/L AST (15-37) U/L ALT (16-63) U/L Alkaline Phosphatase (46-116) U/L Total Protein (6.4-8.2) g/dl Albumin (3.4-5.0) g/dl Globulin gm/dL Albumin/Globulin Ratio (1-2) Lipase (73-393) U/L Urine Color (Yellow) Urine Appearance (Clear) Urine pH (5.0-8.0) Ur Specific [place] (1.005-1.030) Urine Protein (Negative) Urine Glucose (UA) (Negative) Urine Ketones (Negative) Urine Occult Blood (Negative) Urine Nitrite (Negative) Urine Bilirubin (Negative) Urine Urobilinogen (0.2-1.0) Ur Leukocyte Esterase (Negative) Urine RBC (0-5) /hpf Urine WBC (0-5) /hpf Ur Epithelial Cells (0-5) /hpf Urine Bacteria (FEW) /hpf Urine Mucus (FEW) /hpf Acetaminophen (10-30) ug/mL Ethyl Alcohol (0.00) gm% Med Orders - Current: Current Medications Albuterol/Ipratropium (Duoneb 3.0-0.5 Mg/3 Ml) 3 ml NEB Q4H PRN PRN Reason: Shortness Of Breath/wheezing Bisacodyl (Dulcolax) 5 mg PO DAILY PRN PRN Reason: Constipation Bisacodyl (Dulcolax) 10 mg RECTAL BID PRN PRN Reason: Constipation Famotidine (Pepcid) 20 mg IVPUSH BID [facility] Last Admin: 10/04/17 21:00 Dose: 20 mg Fluoxetine HCl (Prozac) 40 mg PO DAILY [facility] Hydralazine HCl (Apresoline) 20 mg IVPUSH Q4H PRN PRN Reason: Hypertension Promethazine HCl 12.5 mg/ (Sodium Chloride) 50.5 mls @ 100 mls/hr IV Q6H PRN PRN Reason: Nausea/Vomiting Sodium Chloride (Normal Saline) 1,000 mls @ 125 mls/hr IV ASDIRECTED [facility] Last Admin: 10/05/17 00:37 Dose: 125 mls/hr Ibuprofen (Motrin) 400 mg PO Q6H PRN PRN Reason: Pain (mild 1-3) Last Admin: 10/04/17 17:18 Dose: 400 mg Lorazepam (Ativan) 2 mg IVPUSH Q4H PRN PRN Reason: Seizures Lorazepam (Ativan) 1 mg IV Q6H PRN PRN Reason: Anxiety Last Admin: 10/04/17 17:18 Dose: 1 mg Magnesium Hydroxide (Milk Of Magnesia) 30 ml PO Q12H PRN PRN Reason: Constipation Magnesium Sulfate (Pharmacy To Dose - Magnesium Replacement) 1 dose .XX ASDIRECTED [facility] Methylphenidate HCl (Ritalin) 20 mg PO TID [facility] Last Admin: 10/04/17 21:01 Dose: Not Given Metoprolol Tartrate (Lopressor) 5 mg IVPUSH Q4H PRN PRN Reason: Tachycardia Miscellaneous Information (Remove Patch) 1 ea TRDERM DAILY [facility] Morphine Sulfate (Morphine) 4 mg IVPUSH Q2H PRN PRN Reason: Pain Last Admin: 10/04/17 21:06 Dose: 4 mg Nicotine (Habitrol) 21 mg TRDERM DAILY PRN PRN Reason: Nicotine Last Admin: 10/04/17 17:05 Dose: 21 mg Ondansetron HCl (Zofran) 4 mg IV Q6H PRN PRN Reason: Nausea/Vomiting Oxycodone HCl (Oxycodone) 10 mg PO Q4H PRN PRN Reason: Pain (moderate 4-6) Last Admin: 10/05/17 02:02 Dose: 10 mg Polyethylene Glycol (Miralax) 17 gm PO DAILY PRN PRN Reason: Constipation Potassium Chloride (Pharmacy To Dose - Potassium Replacement) 1 dose .XX ASDIRECTED [facility] Senna (Senna) 17.2 mg PO DAILY [facility] Last Admin: 10/04/17 11:30 Dose: 17.2 mg Senna/Docusate Sodium (Senna Plus) 1 tab PO BID PRN PRN Reason: Constipation Temazepam (Restoril) 15 mg PO BEDTIME PRN PRN Reason: Sleep Last Admin: 10/05/17 00:37 Dose: 15 mg Discontinued Medications Diatrizoate Meglum/Diatrizoate Sod (Gastrografin 37%) 90 ml PO ONETIME ONE Stop: 10/04/17 14:10 Last Admin: 10/04/17 14:51 Dose: 90 ml Docusate Sodium (Colace) 200 mg PO ONETIME ONE Stop: 10/04/17 11:13 Last Admin: 10/04/17 11:31 Dose: 200 mg Famotidine (Pepcid) 20 mg IVPUSH ONETIME ONE Stop: 10/04/17 15:48 Last Admin: 10/04/17 16:43 Dose: 20 mg Sodium Chloride (Normal Saline) 1,000 mls @ 1,000 mls/hr IV ONETIME ONE Stop: 10/04/17 12:10 Last Admin: 10/04/17 11:25 Dose: 1,000 mls/hr Sodium Chloride (Normal Saline) 1,000 mls @ 1,000 mls/hr IV ONETIME ONE Stop: 10/04/17 14:05 Last Admin: 10/04/17 13:13 Dose: 1,000 mls/hr Iopamidol (Isovue-300 (61%)) 125 ml IVPUSH ONETIME ONE Stop: 10/04/17 14:10 Last Admin: 10/04/17 14:51 Dose: 125 ml Lactulose (Cephulac) 20 gm PO TID ARAVIND Last Admin: 10/04/17 21:44 Dose: Not Given Lorazepam (Ativan) 1 mg IVPUSH ONETIME ONE Stop: 10/04/17 13:07 Last Admin: 10/04/17 13:14 Dose: 1 mg Metoclopramide HCl (Reglan) 5 mg IVPUSH Q6H [facility]RAVIND Last Admin: 10/04/17 21:45 Dose: Not Given Ondansetron HCl (Zofran) 4 mg IVPUSH ONETIME ONE Stop: 10/04/17 13:07 Last Admin: 10/04/17 13:13 Dose: 4 mg Scopolamine (Transderm-Scop) 1.5 mg TRDERM NOW STA Stop: 10/04/17 15:46 Last Admin: 10/04/17 16:44 Dose: 1.5 mg Sodium Chloride (Saline Flush) 10 ml FLUSH ONETIME ONE Stop: 10/04/17 14:10 Last Admin: 10/04/17 14:51 Dose: 10 ml - Exam General: Alert, Oriented, Cooperative, No Acute Distress HEENT: Pupils Equal, Pupils Reactive, EOMI, Mucous Membr. Moist/[place] Neck: Supple, Trachea Midline, No JVD Lungs: Clear to Auscultation, Normal Respiratory Effort Cardiovascular: Regular Rate, Regular Rhythm GI/Abdominal Exam: Normal Bowel Sounds, Soft, No Organomegaly, No Distention, No Abnormal Bruit, No Mass, Tender (mild on lower abdomen). No: Guarding, Rigid , Rebound (Male) Exam: Deferred Back Exam: Normal Inspection, Full Range of Motion Extremities: Normal Inspection, Normal Range of Motion, Non-Tender, No Pedal Edema, Normal Capillary Refill Peripheral Pulses: 2+: Dorsalis Pedis (L), Dorsalis Pedis (R) Skin: Warm, Dry, Intact Neurological: No New Focal Deficit, Normal Gait Psy/Mental Status: Alert, Normal Affect, Normal Mood - Problem List Review Problem List Initiated/Reviewed/Updated: Yes - My Orders Last 24 Hours: My Active Orders 10/04/17 15:36 LORazepam [Ativan] 2 mg IVPUSH Q4H PRN Metoprolol Tartrate [Lopressor] 5 mg IVPUSH Q4H PRN hydrALAZINE [Apresoline] 20 mg IVPUSH Q4H PRN 10/04/17 15:37 Height and Weight [RC] 04 Oxygen Therapy [RC] PRN Up ad Jonelle [RC] ASDIRECTED VTE/DVT Education [RC] 10, Vital Signs [RC] Q4HR Albuterol/Ipratropium [DuoNeb 3.0-0.5 MG/3 ML] 3 ml NEB Q4H PRN Bisacodyl [Dulcolax] 5 mg PO DAILY PRN Docusate Sodium/Sennosides [Senna Plus] 1 tab PO BID PRN Ibuprofen [Motrin] 400 mg PO Q6H PRN LORazepam [Ativan] 1 mg IV Q6H PRN Magnesium Hydroxide [Milk of Magnesia] 30 ml PO Q12H PRN Ondansetron [Zofran] 4 mg IV Q6H PRN Polyethylene Glycol 3350 [MiraLAX] 17 gm PO DAILY PRN Promethazine [Phenergan] 12.5 mg Sodium Chloride 0.9% [Normal Saline] 50 ml IV Q6H Temazepam [Restoril] 15 mg PO BEDTIME PRN oxyCODONE 10 mg PO Q4H PRN Resuscitation Status Routine 10/04/17 15:38 Intake and Output [RC] 04,16 10/04/17 15:40 RT Aerosol Therapy [RC] ASDIRECTED 10/04/17 15:42 Consult to Driller And Reamer [CONS] Routine Consult to Spiritual Care [CONS] Routine 10/04/17 15:45 Magnesium Rep Pharmacy to Dose [Pharmacy to Dose - Magnesium Replacement] 1 dose .XX ASDIRECTED Nicotine [Habitrol] 21 mg TRDERM DAILY PRN Potassium Rep Pharmacy to Dose [Pharmacy to Dose - Potassium Replacement] 1 dose .XX ASDIRECTED Sodium Chloride 0.9% [Normal Saline] 1,000 ml IV ASDIRECTED 10/04/17 15:46 Bisacodyl [Dulcolax] 10 mg RECTAL BID PRN 10/04/17 21:00 Famotidine [Pepcid] 20 mg IVPUSH BID Methylphenidate [Ritalin] 20 mg PO TID 10/05/17 05:11 C-REACTIVE PROTEIN [CHEM] AM CBC WITH AUTO DIFF [HEME] AM MAGNESIUM [CHEM] AM 10/05/17 09:00 FLUoxetine [PROzac] 40 mg PO DAILY 10/05/17 Breakfast Full Liquid Diet [DIET] 10/06/17 05:11 C-REACTIVE PROTEIN [CHEM] AM MAGNESIUM [CHEM] AM 10/07/17 05:11 C-REACTIVE PROTEIN [CHEM] AM MAGNESIUM [CHEM] AM - Plan Plan:: Assessment/Plan: Acute Abdominal Pain, Significantly Improved - ETOH Gastritis vs Severe Constipation - Risk factors: GERD and ETOH Abuse - Has been drinking heavily for the past 3 days - His bowel movement was 7-8 days ago; S/p bowel movement - We were trying to help him on his initial admission but left AMA - He is passing gas - PPI IV x1 then H2B Transaminitis - AST 623/ALT 3413 and GGT 313 - Carries a hx/o Hep C infection; not on treatment - His PCP in the process of referring him [facility] Tobacco Use Disorder - Smokes 1ppd - Nicotine Patch PRN daily - Counseled on smoking cessation but not ready to quit Chronic: ETOH Abuse GERD Bipolar Disorder Depression/Anxiety Back Pain Hepatitis C Infection Hx/o Poly-Substance Abuse Marital Discord/Disharmony Plan: He remains clinically stable Routine AM Labs Advance diet as tolerated SW/CM d/c planning Code Status: 1 Possible d/c in AM
[2017-10-05] MEDS: Ibuprofen 400 MG Tab PO PRN ×2 (05:59→16:05)
[2017-10-05] MEDS: Nicotine 21 MG/24 Hr Patch TRDERM PRN (08:21)
[2017-10-05] MEDS: Famotidine 20 MG/2 ML SDV IVPUSH SCH (08:21)
[2017-10-05] MEDS: LORazepam 2 MG/ML SDV IV PRN ×2 (08:22→20:57)
[2017-10-05] MEDS: Sennosides 8.6 MG Tab PO SCH (08:22)
[2017-10-05] MEDS ORDERED: FLUoxetine 20 MG Cap PO SCH (09:00)
[2017-10-05] MEDS ORDERED: Scopolamine 1.5 MG Transdermal Patch TRDERM SCH (09:30)
[2017-10-05] MEDS: Clindamycin HCl 150 MG Cap PO SCH ×4 (12:21→21:07)
[2017-10-05] MEDS: Famotidine 20 MG Tab PO SCH ×2 (19:57→21:11)
[2017-10-05] MEDS: Saccharomyces Boulardii (Probiotic) 250 MG Cap PO SCH ×2 (19:57→21:08)
[2017-10-05] MEDS: Morphine 4 MG/ML Syringe IVPUSH PRN (20:07)
[2017-10-06] MEDS: Ibuprofen 400 MG Tab PO PRN (01:17)
[2017-10-06] MEDS: oxyCODONE 5 MG Tab PO PRN ×2 (02:41→06:42)
--- NOTE | 2017-10-06 07:00 | PCM.DCSUM1 ---
Discharge Summary - Hospital Course Brief History: This is 42 yo white male with past medical hx/o GERD, Hep C Infection, Bipolar Disorder, SA, Depression, Back Pain, Substance Abuse and Hx/ o Chronic ETOH Abuse who comes in with similar complaints of lower abdominal pain without radiation. He reports decreased appetite, nausea and dry heaving. He denies having diarrhea and his last bowel movement was 7-8 days ago. No hematemesis, hematochezia or melena. He further denies drinking or eating bad foods. His intake has not been good. Patient was here 3 days ago for ETOH detoxification and at the same time he was having abdominal complaints. We were trying to help him at that time to have a bowel movement but decided to leave A. Today, he comes back with similar complaints of not been able to have a bowel movement. His initial work up in ED shows a CBC remarkable for RBC of 4.61 , Platelet of 158, Neutrophils of 71.4% and Lymphocytes of 16.6%. His chemistry is significant for Total bilirubin of 2.6, AST of 623, and AST of 3413. His UA is pos for 4+ urobilinogen. His acetaminophen level is 2 and VIV is 0. His abdominal x-ray shows increased stool. His Abdominal/Pelvis CT scan shows no acute abnormal findings. He is being admitted for medical management of constipation. - Discharge Data Discharge Date: 10/06/17 Discharge Disposition: Home, Self-Care 01 Condition: Good - Discharge Diagnosis/Problem(s) (1) Constipation by delayed colonic transit SNOMED Code(s): 16301885 ICD Code: K59.01 - SLOW TRANSIT CONSTIPATION Status: Resolved (2) Abdominal pain SNOMED Code(s): 10768476 ICD Code: R10.9 - UNSPECIFIED ABDOMINAL PAIN Status: Resolved Qualifiers: Abdominal location: right upper quadrant Qualified Code(s): R10.11 - Right upper quadrant pain (3) Hepatitis SNOMED Code(s): 483497947 ICD Code: K75.9 - INFLAMMATORY LIVER DISEASE, UNSPECIFIED Status: Acute Problem Details: - Hep C infection per patient - Pending referral to specialist by his PCP (4) Alcohol abuse SNOMED Code(s): 64039298 ICD Code: F10.10 - ALCOHOL ABUSE, UNCOMPLICATED Status: Chronic - Patient Summary/Data Operative Procedure(s) Performed: None Complications: None Consults: Consultations 10/04/17 15:42 Consult to Report Developer [CONS] Routine Consult to Spiritual Care [CONS] Routine Labs Pending at D/C: None Recommended Follow-up Testing/Procedures: None Planned Operative Procedure(s) after DC: None Hospital Course: Patient was primarily admitted for medical management of abdominal pain which we felt secondary to constipation. He was initially hospitalized on the 3rd (Apr ) for it but left AMA. However he came back still not able to have a bowel movement. On the floor, he was given good bowel prep and immediately improved on this regimen. His hospital course was uncomplicated and his liver enzymes remains stable. Patient was stable upon discharge. He was provided probiotic, GI supplement, for his Clindamycin. He was advised to resume all of his routine home medications. He was further advised to call or follow up with his PCP for any questions or concerns after discharge. And most importantly, he was advised to keep his GI appointment as or will be scheduled by his PCP after discharge. The patient expressed understanding and in agreement with the plans as discussed above. All questions were answered. - Patient Instructions Diet: Usual Diet as Tolerated Activity: As Tolerated Driving: May Drive Today Showering/Bathing: May Shower Notify Provider of: Fever, Increased Pain, Nausea and/or Vomiting Other/Special Instructions: - Please take new medication as directed. - Continue all home medications. - Avoid if not cut down Alcohol in take. - Resume routine home activities as tolerated. - Recommend you keep appointment to see Whiskey Regauger as scheduled by your PCP. - Talk to your PCP when you are ready to quit smoking. - Call or follow up with your PCP for any questions or concerns after discharge. - Come back or seek immediate care should your symptoms persist or get worse - Discharge Plan Prescriptions/Med Rec: Saccharomyces Boulardii [Florastor] 250 mg PO TID #30 cap Home Medications: Home Meds FLUoxetine [PROzac] 40 mg PO DAILY 01/29/14 [History] Clindamycin HCl 150 mg PO QID 10/04/17 [History] Ibuprofen 200 mg PO Q4HR PRN 10/04/17 [History] Saccharomyces Boulardii [Florastor] 250 mg PO TID #30 cap 10/05/17 [Rx] Patient Handouts: Alcohol Use Disorder, Constipation, Adult, [id number], Abdominal Pain, Adult, [id number], Hepatitis C, [id number], Alcohol Abuse and Nutrition Referrals: Sophia Simpson NP [Ordering Only Provider] - (Obtain referral for a gastroenterology appointment. Pt already has appointment with PCP.) PCP,None [Primary Care Provider] - - Discharge Summary/Plan Comment DC Time >30 min.: Yes (45 mins) Discharge Summary/Plan Comment: Discharge to Home Offered practical counseling on smoking cigarettes. He was counseled about the dangers of smoking and associated health risks. At this time he is not ready to quit. Patient was provided reading materials or brochures to help when to quit smoking. He was advised to set a specific date, call the Quit line and follow up with his PCP when he is ready to quit. - General Info Date of Service: 10/06/17 Admission Dx/Problem (Free Text: Acute Hepatitis and Abdominal Pain Subjective Update: Follow Up Functional Status: Reports: Pain Controlled, Tolerating Diet, Ambulating, Urinating - Review of Systems General: Denies: Fever, Weakness, Fatigue, Malaise, Chills HEENT: Reports: No Symptoms Pulmonary: Denies: Shortness of Breath Cardiovascular: Denies: Chest Pain Gastrointestinal: Reports: Flatus. Denies: Abdominal Pain, Constipation, Decreased Appetite, Diarrhea, Difficulty Swallowing, Nausea, Vomiting Genitourinary: Reports: No Symptoms Musculoskeletal: Reports: No Symptoms Skin: Reports: No Symptoms Neurological: Denies: Confusion, Difficulty Walking, Weakness, Gait Disturbance Psychiatric: Denies: Depression, Anxiety, Agitation, Hallucinations Systems Review Comment: No significant medical issues although he gave his nurse other issues overnight issues. He has no GI complaints this morning. - Patient Data Vitals - Most Recent: Last Vital Signs Temp 36.6 C 10/06/17 02:48 Pulse 93 10/06/17 02:48 Resp 18 10/06/17 02:48 BP 139/86 10/06/17 02:50 Pulse Ox 99 10/06/17 02:48 Weight - Most Recent: 104.961 kg I&O - Last 24 hours: Intake & Output 10/05/17 10/06/17 10/06/17 22:59 06:59 14:59 Intake Total 2280 800 Balance 2280 800 Med Orders - Current: Current Medications Albuterol/Ipratropium (Duoneb 3.0-0.5 Mg/3 Ml) 3 ml NEB Q4H PRN PRN Reason: Shortness Of Breath/wheezing Bisacodyl (Dulcolax) 5 mg PO DAILY PRN PRN Reason: Constipation Bisacodyl (Dulcolax) 10 mg RECTAL BID PRN PRN Reason: Constipation Clindamycin HCl (Cleocin) 150 mg PO QID [facility] [place] Last Admin: 10/05/17 21:07 Dose: Not Given Famotidine (Pepcid) 20 mg PO BID [facility] [place] Last Admin: 10/05/17 21:11 Dose: Not Given Flunisolide (Nasalide Nasal [place]) 0 ml NASBOTH BID [facility] [place] Last Admin: 10/05/17 20:07 Dose: 1 spray Fluoxetine HCl (Prozac) 40 mg PO DAILY [facility] [place] Last Admin: 10/05/17 08:21 Dose: 40 mg Hydralazine HCl (Apresoline) 20 mg IVPUSH Q4H PRN PRN Reason: Hypertension Last Admin: 10/05/17 16:05 Dose: 20 mg Promethazine HCl 12.5 mg/ (Sodium Chloride) 50.5 mls @ 100 mls/hr IV Q6H PRN PRN Reason: Nausea/Vomiting Ibuprofen (Motrin) 400 mg PO Q6H PRN PRN Reason: Pain (mild 1-3) Last Admin: 10/06/17 01:17 Dose: 400 mg Lorazepam (Ativan) 2 mg IVPUSH Q4H PRN PRN Reason: Seizures Lorazepam (Ativan) 1 mg IV Q6H PRN PRN Reason: Anxiety Last Admin: 10/05/17 20:57 Dose: 1 mg Magnesium Hydroxide (Milk Of Magnesia) 30 ml PO Q12H PRN PRN Reason: Constipation Magnesium Sulfate (Pharmacy To Dose - Magnesium Replacement) 1 dose .XX ASDIRECTED [facility] [place] Metoprolol Tartrate (Lopressor) 5 mg IVPUSH Q4H PRN PRN Reason: Tachycardia Miscellaneous Information (Remove Patch) 1 ea TRDERM DAILY [facility] [place] Last Admin: 10/05/17 08:21 Dose: 1 ea Miscellaneous Information (Remove Patch) 0 ea TRDERM Q72H [facility] [place] Morphine Sulfate (Morphine) 4 mg IVPUSH Q2H PRN PRN Reason: Pain Last Admin: 10/05/17 20:07 Dose: 4 mg Nicotine (Habitrol) 21 mg TRDERM DAILY PRN PRN Reason: Nicotine Last Admin: 10/05/17 08:21 Dose: 21 mg Ondansetron HCl (Zofran) 4 mg IV Q6H PRN PRN Reason: Nausea/Vomiting Last Admin: 10/05/17 14:56 Dose: 4 mg Oxycodone HCl (Oxycodone) 10 mg PO Q4H PRN PRN Reason: Pain (moderate 4-6) Last Admin: 10/06/17 06:42 Dose: 10 mg Polyethylene Glycol (Miralax) 17 gm PO DAILY PRN PRN Reason: Constipation Potassium Chloride (Pharmacy To Dose - Potassium Replacement) 1 dose .XX ASDIRECTED [facility] [place] Saccharomyces Boulardii (Florastor) 250 mg PO BID [facility] [place] Last Admin: 10/05/17 21:08 Dose: Not Given Scopolamine (Transderm-Scop) 1.5 mg TRDERM Q72H [facility] [place] Last Admin: 10/05/17 09:38 Dose: 1.5 mg Senna (Senna) 17.2 mg PO DAILY [facility] [place] Last Admin: 10/05/17 08:22 Dose: Not Given Senna/Docusate Sodium (Senna Plus) 1 tab PO BID PRN PRN Reason: Constipation Temazepam (Restoril) 15 mg PO BEDTIME PRN PRN Reason: Sleep Last Admin: 10/05/17 23:03 Dose: 15 mg Discontinued Medications Diatrizoate Meglum/Diatrizoate Sod (Gastrografin 37%) 90 ml PO ONETIME ONE Stop: 10/04/17 14:10 Last Admin: 10/04/17 14:51 Dose: 90 ml Docusate Sodium (Colace) 200 mg PO ONETIME ONE Stop: 10/04/17 11:13 Last Admin: 10/04/17 11:31 Dose: 200 mg Famotidine (Pepcid) 20 mg IVPUSH ONETIME ONE Stop: 10/04/17 15:48 Last Admin: 10/04/17 16:43 Dose: 20 mg Famotidine (Pepcid) 20 mg IVPUSH BID [facility] [place] Last Admin: 10/05/17 08:21 Dose: 20 mg Sodium Chloride (Normal Saline) 1,000 mls @ 1,000 mls/hr IV ONETIME ONE Stop: 10/04/17 12:10 Last Admin: 10/04/17 11:25 Dose: 1,000 mls/hr Sodium Chloride (Normal Saline) 1,000 mls @ 1,000 mls/hr IV ONETIME ONE Stop: 10/04/17 14:05 Last Admin: 10/04/17 13:13 Dose: 1,000 mls/hr Sodium Chloride (Normal Saline) 1,000 mls @ 125 mls/hr IV ASDIRECTED [facility] [place] Last Admin: 10/05/17 09:38 Dose: 125 mls/hr Iopamidol (Isovue-300 (61%)) 125 ml IVPUSH ONETIME ONE Stop: 10/04/17 14:10 Last Admin: 10/04/17 14:51 Dose: 125 ml Lactulose (Cephulac) 20 gm PO TID [facility] [place] Last Admin: 10/04/17 21:44 Dose: Not Given Lorazepam (Ativan) 1 mg IVPUSH ONETIME ONE Stop: 10/04/17 13:07 Last Admin: 10/04/17 13:14 Dose: 1 mg Methylphenidate HCl (Ritalin) 20 mg PO TID [facility] [place] Last Admin: 10/04/17 21:01 Dose: Not Given Metoclopramide HCl (Reglan) 5 mg IVPUSH Q6H [facility] [place] Last Admin: 10/04/17 21:45 Dose: Not Given Ondansetron HCl (Zofran) 4 mg IVPUSH ONETIME ONE Stop: 10/04/17 13:07 Last Admin: 10/04/17 13:13 Dose: 4 mg Scopolamine (Transderm-Scop) 1.5 mg TRDERM NOW STA Stop: 10/04/17 15:46 Last Admin: 10/04/17 16:44 Dose: 1.5 mg Sodium Chloride (Saline Flush) 10 ml FLUSH ONETIME ONE Stop: 10/04/17 14:10 Last Admin: 10/04/17 14:51 Dose: 10 ml - Exam General: Reports: Alert, Oriented, Cooperative, No Acute Distress HEENT: Reports: Pupils Equal, Pupils Reactive, EOMI, Mucous Membr. Moist/[place] Neck: Reports: Supple, Trachea Midline, No JVD Lungs: Reports: Clear to Auscultation, Normal Respiratory Effort Cardiovascular: Reports: Regular Rate, Regular Rhythm GI/Abdominal Exam: Normal Bowel Sounds, Soft, Non-Tender, No Organomegaly, No Distention, No Abnormal Bruit, No Mass (Male) Exam: Deferred Rectal (Males) Exam: Deferred Back Exam: Reports: Normal Inspection, Decreased Range of Motion Extremities: Normal Inspection, Normal Range of Motion, Non-Tender, No Pedal Edema, Normal Capillary Refill Skin: Reports: Warm, Dry, Intact Neurological: Reports: No New Focal Deficit Psy/Mental Status: Reports: Alert, Normal Affect, Normal Mood. Denies: Depressed, Suicidal Ideation, Hallucinations, Withdrawal Symptoms
== END 2017-10-06 07:45 | disposition home or self-care (01) | DRG 392 ==
LOC: JD.ED 09:45 → JD.MS 16:14
PROVIDERS: ADMIT Internal Medicine; ATTEND Internal Medicine
DX: K59.01 Slow transit constipation (principal); B17.10 Acute hepatitis C without hepatic coma; K21.9 Gastro-esophageal reflux disease without esophagitis; F31.9 Bipolar disorder, unspecified; M54.9 Dorsalgia, unspecified; F10.10 Alcohol abuse, uncomplicated; R11.0 Nausea; F17.210 Nicotine dependence, cigarettes, uncomplicated; H54.7 Unspecified visual loss; M19.90 Unspecified osteoarthritis, unspecified site; F41.9 Anxiety disorder, unspecified; Z63.0 Problems in relationship with spouse or partner; R06.02 Shortness of breath
CPT/HCPCS: 36415; 74019; 74019-26; 74177; 74177-26; 80053; 81001; 82977; 83605; 83690; 83735; 85025; 85610; 86140; 96361; 96374; 96375; 99285-25; A9270-GY; G0480; J0360; J2060; J2270; J2405; J2765; J7040; J7050; Q9963; Q9967

== ENCOUNTER 2017-11-13 13:10 | Emergency (ER) | payer MEDICAID ==
[2017-11-13] MEDS ORDERED: Sodium Chloride 0.9% 10 ML Syringe FLUSH PRN (13:33)
[2017-11-13] MEDS ORDERED: LORazepam 2 MG/ML SDV IVPUSH ONE (13:35)
[2017-11-13] MEDS ORDERED: Sodium Chloride 0.9% 1,000 ML IV SCH (13:45)
--- NOTE | 2017-11-13 13:52 | CT ---
Head CT Technique: Multiple axial sections through the brain were obtained. Intravenous contrast was not utilized. Comparison: No previous intracranial imaging. Findings: Ventricles along with basal cisterns and sulci over convexities are within normal limits for the patient's age. No abnormal parenchymal densities are seen. No evidence of intracranial hemorrhage. No midline shift or mass effect is seen. Bone window settings were reviewed which shows no acute calvarial abnormality. Visualized sinuses are clear. Impression: 1. Nothing acute is identified on noncontrast head CT exam. Diagnostic code #1
--- NOTE | 2017-11-13 14:16 | CR ---
Chest: Portable view of the chest was obtained. Comparison: Previous chest x-ray of 09/30/17. Heart size and mediastinum are normal. Lungs are clear. Bony structures are grossly intact. Impression: 1. Nothing acute is seen on portable chest x-ray. Diagnostic code #1
--- NOTE | 2017-11-13 15:24 | EDM.PDOCBH ---
ED HPI GENERAL MEDICAL PROBLEM - General Chief Complaint: Behavioral/Psych Stated Complaint: POSS. STROKE Time Seen by Provider: 11/13/17 13:16 Source of Information: Reports: Patient History Limitations: Reports: No Limitations - History of Present Illness INITIAL COMMENTS - FREE TEXT/NARRATIVE: The patient thinks he may be having a stroke. He has tingling and numbness to his hands and face. This started today. He has chest pain and he feels short of breath. He also has a headache. He has some nausea. He said he has not felt well for a day or 2. He has been under lots of stress the past week. He has not been drinking alcohol. He used to drink in the past very heavy but not for a few months. He does not use any drugs. He has no fever but he does have some chills. He has no history of heart problems. He says the chest pain is like tightness. Onset: Gradual Duration: Day(s): Location: Reports: Chest Quality: Reports: Other (Tightness) Severity: Mild Improves with: Reports: None Worsens with: Reports: None Associated Symptoms: Reports: Chest Pain, Headaches, Shortness of Breath. Denies: Cough, Fever/Chills, Nausea/Vomiting Headache Pain Score (Numeric/FACES): 5 - Related Data Allergies Allergy/AdvReac Type Severity Reaction Status Date / Time No Known Allergies Allergy Verified 11/13/17 13:23 Home Meds: Home Meds FLUoxetine [PROzac] 40 mg PO DAILY 01/29/14 [History] LORazepam [Ativan] 1 mg PO Q8H PRN #10 tab 11/13/17 [Rx] Methylphenidate HCl [Ritalin] 20 mg PO TID 11/13/17 [History] Past Medical History - Past Health History Medical/Surgical History: Denies Medical/Surgical History HEENT History: Reports: Impaired Vision Respiratory History: Reports: TB Gastrointestinal History: Reports: GERD, Hepatitis Musculoskeletal History: Reports: Arthritis Other Musculoskeletal History: degenerative disk disease Neurological History: Reports: Seizure Psychiatric History: Reports: Addiction, Bipolar, Depression - Infectious Disease History Infectious Disease History: Reports: Hepatitis C - Past Surgical History HEENT Surgical History: Reports: Oral Surgery Social & Family History - Family History Family Medical History: Noncontributory - Tobacco Use Smoking Status *Q: Current Every Day Smoker Years of Tobacco use: 10 Packs/Tins Daily: 1 Second Hand Smoke Exposure: No - Caffeine Use Caffeine Use: Reports: Coffee, Energy Drinks, Soda, Tea - Living Situation & Occupation Living situation: Reports: , Single Occupation: Unemployed ED ROS GENERAL - Review of Systems Review Of Systems: See Below Constitutional: Reports: No Symptoms HEENT: Reports: No Symptoms Respiratory: Reports: Shortness of Breath Cardiovascular: Reports: Chest Pain Endocrine: Reports: No Symptoms GI/Abdominal: Reports: No Symptoms : Reports: No Symptoms Musculoskeletal: Reports: No Symptoms ED EXAM, BEHAVIORAL HEALTH - Physical Exam Exam: See Below Exam Limited By: No Limitations General Appearance: Alert, Anxious Ears: Normal External Exam Nose: Normal Inspection Head: Atraumatic, Normocephalic Neck: Normal Inspection Respiratory/Chest: No Respiratory Distress, Lungs Clear, Normal Breath Sounds Cardiovascular: Regular Rate, Rhythm, No Edema, No Murmur GI/Abdominal: Soft, Non-Tender, No Organomegaly, No Mass Back Exam: Normal Inspection Extremities: Normal Inspection Neurological: Alert, No Motor/Sensory Deficits, Oriented x 3, Other (Shaking when reaching) EKG INTERPRETATION EKG Date: 11/13/17 Time: 02:02 Rhythm: Other (Sinus tachycardia) Rate (Beats/Min): 104 [place]: Normal P-Wave: Present QRS: Normal ST-T: Normal QT: Normal EKG Interpretation Comments: Q waves in the inferior leads COURSE, BEHAVIORAL HEALTH COMP - Course Vital Signs: Last Vital Signs Temp 99.2 F 11/13/17 13:16 Pulse 111 H 11/13/17 13:16 Resp 22 H 11/13/17 13:16 BP 135/92 H 11/13/17 13:16 Pulse Ox 100 11/13/17 13:16 Orders, Labs, Meds: Active Orders 24 hr Category Date Time Status Cardiac Monitoring [RC] . DIRECTED Care 11/13/17 13:33 Active EKG Documentation Completion [RC] STAT Care 11/13/17 13:33 Active Peripheral IV Care [RC] . DIRECTED Care 11/13/17 13:34 Active DRUG SCREEN, URINE [URCHEM] Stat Lab 11/13/17 13:35 Ordered Sodium Chloride 0.9% [Normal Saline] 1,000 ml Med 11/13/17 13:45 Active IV ASDIRECTED Sodium Chloride 0.9% [Saline Flush] Med 11/13/17 13:33 Active 10 ml FLUSH ASDIRECTED PRN Peripheral IV Insertion Adult [OM.PC] Stat Oth 11/13/17 13:33 Ordered Medication Orders Sodium Chloride (Normal Saline) 1,000 mls @ 125 mls/hr IV ASDIRECTED ARAVIND Last Admin: 11/13/17 13:48 Dose: 125 mls/hr Sodium Chloride (Saline Flush) 10 ml FLUSH ASDIRECTED PRN PRN Reason: Keep Vein Open Last Admin: 11/13/17 13:49 Dose: 10 ml Laboratory Tests 11/13/17 11/13/17 Range/Units 13:35 13:35 WBC 7.84 (4.23-9.07) K/mm3 RBC 4.75 (4.63-6.08) M/mm3 Hgb 14.7 (13.7-17.5) gm/L Hct 41.2 (40.1-51.0) % MCV 86.7 (79.0-92.2) fl MCH 30.9 (25.7-32.2) pg MCHC 35.7 H (32.2-35.5) g/dl RDW Std Deviation 39.0 (35.1-43.9) fL Plt Count 195 (163-337) K/mm3 MPV 11.1 (9.4-12.3) fl Neut % (Auto) 62.9 (34.0-67.9) % Lymph % (Auto) 26.5 (21.8-53.1) % [place] % (Auto) 9.2 (5.3-12.2) % Eos % (Auto) 0.8 (0.8-7.0) Baso % (Auto) 0.5 (0.1-1.2) % Neut # (Auto) 4.93 (1.78-5.38) K/mm3 Lymph # (Auto) 2.08 (1.32-3.57) K/mm3 [place] # (Auto) 0.72 (0.30-0.82) K/mm3 Eos # (Auto) 0.06 (0.04-0.54) K/mm3 Baso # (Auto) 0.04 (0.01-0.08) K/mm3 Sodium 140 (136-145) mEq/L Potassium 3.2 L (3.5-5.1) mEq/L Chloride 105 (98-107) mEq/L Carbon Dioxide 22 (21-32) mEq/L Anion Gap 16.2 H (5-15) BUN 11 (7-18) mg/dL Creatinine 1.2 (0.7-1.3) mg/dL Est Cr Clr Drug Dosing 89.25 mL/min Estimated GFR (MDRD) > 60 (>60) mL/min BUN/Creatinine Ratio 9.2 L (14-18) Glucose 92 (74-106) mg/dL Calcium 9.6 (8.5-10.1) mg/dL Magnesium 2.2 (1.8-2.4) mg/dl Total Bilirubin 1.1 H (0.2-1.0) mg/dL AST 51 H (15-37) U/L ALT 93 H (16-63) U/L Alkaline Phosphatase 62 (46-116) U/L Troponin I < 0.017 (0.00-0.056) ng/mL Total Protein 7.9 (6.4-8.2) g/dl Albumin 4.1 (3.4-5.0) g/dl Globulin 3.8 gm/dL Albumin/Globulin Ratio 1.1 (1-2) Ethyl Alcohol 0.00 (0.00) gm% Medications Generic Name Dose Route Start Last Admin Trade Name Freq PRN Reason Stop Dose Admin Sodium Chloride 1,000 mls @ 125 mls/hr 11/13/17 13:45 11/13/17 13:48 Normal Saline IV 125 mls/hr ASDIRECTED ARAVIND Administration Sodium Chloride 10 ml 11/13/17 13:33 11/13/17 13:49 Saline Flush FLUSH 10 ml ASDIRECTED PRN Administration Keep Vein Open Discontinued Medications Generic Name Dose Route Start Last Admin Trade Name Freq PRN Reason Stop Dose Admin Lorazepam 1 mg 11/13/17 13:35 11/13/17 13:47 Ativan IVPUSH 11/13/17 13:36 1 mg ONETIME ONE Administration Re-Assessment/Re-Exam: I ordered an IV NS, EKG, CT of her head, labs and ativan 1mg IV. His EKG shows a sinus tachycardia. His CXR looks good. The CT of his head shows nothing acute. His CBC looks good. His K was low at 3.2. His total bili is 1.1. His AST is elevated at 51. His ALT is elevated at 93. His troponin is negative. His ETOH is negative. This appears to be from anxiety. I will discharge him home with some ativan as needed. Departure - Departure Time of Disposition: 15:45 Disposition: Home, Self-Care 01 Condition: Good Clinical Impression: Anxiety, Panic attack as reaction to stress - Discharge Information Prescriptions: LORazepam [Ativan] 1 mg PO Q8H PRN #10 tab PRN Reason: Anxiety Referrals: PCP,None [Primary Care Provider] - Kat Llanes MD [Physician] - Forms: ED Department Discharge, ED Return to Work/School Form Additional Instructions: Take your medication as prescribed. Take the ativan as needed for any increased anxiety. Please return if you are worse. - My Orders Last 24 Hours: My Active Orders 11/13/17 13:33 Cardiac Monitoring [RC] . DIRECTED EKG Documentation Completion [RC] STAT Sodium Chloride 0.9% [Saline Flush] 10 ml FLUSH ASDIRECTED PRN Peripheral IV Insertion Adult [OM.PC] Stat 11/13/17 13:34 Peripheral IV Care [RC] . DIRECTED 11/13/17 13:35 DRUG SCREEN, URINE [URCHEM] Stat 11/13/17 13:45 Sodium Chloride 0.9% [Normal Saline] 1,000 ml IV ASDIRECTED - Assessment/Plan Last 24 Hours: My Active Orders 11/13/17 13:33 Cardiac Monitoring [RC] . DIRECTED EKG Documentation Completion [RC] STAT Sodium Chloride 0.9% [Saline Flush] 10 ml FLUSH ASDIRECTED PRN Peripheral IV Insertion Adult [OM.PC] Stat 11/13/17 13:34 Peripheral IV Care [RC] . DIRECTED 11/13/17 13:35 DRUG SCREEN, URINE [URCHEM] Stat 11/13/17 13:45 Sodium Chloride 0.9% [Normal Saline] 1,000 ml IV ASDIRECTED
== END 2017-11-13 16:00 | disposition home or self-care (01) ==
LOC: JD.ED 13:10
DX: F43.0 Acute stress reaction (principal); F17.210 Nicotine dependence, cigarettes, uncomplicated
CPT/HCPCS: 36415; 70450; 71045; 80053; 83735; 84484; 85025; 93005; 96361; 96374; 99284; G0480; J2060; J7040; J7050

== ENCOUNTER 2017-11-20 18:39 | Emergency (ER) | payer MEDICAID ==
--- NOTE | 2017-11-20 19:14 | EDM.PDOC ---
ED HPI GENERAL MEDICAL PROBLEM - General Chief Complaint: Abdominal Pain Stated Complaint: [facility] Time Seen by Provider: 11/20/17 19:13 - History of Present Illness INITIAL COMMENTS - FREE TEXT/NARRATIVE: 42-year-old male presents emergency room at the bunch of complaints. Patient has abdominal pain headache his muscles ache everywhere he is uncertain when this started probably several weeks ago he started to have anxiety. The patient used meth yesterday. He has some vague chest discomfort vague abdominal discomfort denies nausea vomiting constipation or diarrhea his kidneys hurt but he does not have burning or frequency with urination. His joints hurt. When asking him a specific question he struggles to answer it and usually answers it with something unrelated. Generalized Pain Score (Numeric/FACES): 10 - Related Data Allergies Allergy/AdvReac Type Severity Reaction Status Date / Time No Known Allergies Allergy Verified 11/20/17 18:47 Home Meds: Home Meds FLUoxetine [PROzac] 40 mg PO DAILY 01/29/14 [History] LORazepam [Ativan] 1 mg PO Q8H PRN #10 tab 11/13/17 [Rx] Methylphenidate HCl [Ritalin] 20 mg PO TID 11/13/17 [History] Past Medical History - Past Health History Medical/Surgical History: Denies Medical/Surgical History HEENT History: Reports: Impaired Vision Respiratory History: Reports: TB Gastrointestinal History: Reports: GERD, Hepatitis Musculoskeletal History: Reports: Arthritis Other Musculoskeletal History: degenerative disk disease Neurological History: Reports: Seizure Psychiatric History: Reports: Addiction, Bipolar, Depression - Infectious Disease History Infectious Disease History: Reports: Hepatitis C - Past Surgical History HEENT Surgical History: Reports: Oral Surgery Social & Family History - Family History Family Medical History: Noncontributory - Tobacco Use Smoking Status *Q: Current Every Day Smoker Years of Tobacco use: 20 Packs/Tins Daily: 1 - Caffeine Use Caffeine Use: Reports: Coffee, Energy Drinks, Soda, Tea - Recreational Drug Use Recreational Drug Use: No - Living Situation & Occupation Living situation: Reports: , Single Occupation: Unemployed ED ROS GENERAL - Review of Systems Review Of Systems: See Below Constitutional: Reports: No Symptoms. Denies: Fever, Chills HEENT: Reports: No Symptoms Respiratory: Reports: No Symptoms, Cough Cardiovascular: Reports: Chest Pain. Denies: Dyspnea on Exertion, Palpitations Endocrine: Reports: Fatigue GI/Abdominal: Reports: Abdominal Pain. Denies: Constipation, Diarrhea, Nausea, Vomiting : Reports: Flank Pain Musculoskeletal: Reports: Arm Pain, Back Pain, Leg Pain, Muscle Pain Skin: Reports: No Symptoms Neurological: Reports: Dizziness Psychiatric: Denies: Homicidal Ideation, Suicidal Ideation Hematologic/Lymphatic: Reports: No Symptoms Immunologic: Reports: No Symptoms ED EXAM, GI/ABD - Physical Exam Exam: See Below Exam Limited By: Other (He is got to be under the influence of something probably stimulant) General Appearance: Alert, Anxious Eyes: Bilateral: Normal Appearance, EOMI Ears: Normal External Exam, Normal Canal, Hearing Grossly Normal, Normal TMs Nose: Normal Inspection, Normal Mucosa, No Blood Respiratory/Chest: No Respiratory Distress, Lungs Clear, Normal Breath Sounds Cardiovascular: Regular Rate, Rhythm, No Edema, No Murmur GI/Abdominal Exam: Normal Bowel Sounds, Soft, Other (Vague discomfort). No: Guarding, Rigid, Rebound (Male) Exam: No Hernia Rectal (Males) Exam: No: Rectal Fissure Back Exam: Normal Inspection, Other (Vague discomfort). No: CVA Tenderness (R) Extremities: Normal Inspection, Normal Range of Motion, No Pedal Edema, Other ( Vague discomfort) Neurological: Alert, CN II-XII Intact, No Motor/Sensory Deficits. No: Normal Cognition Psychiatric: Anxious Skin Exam: Warm, Dry, Intact Lymphatic: No Adenopathy Course - Vital Signs Last Recorded V/S: Last Vital Signs Temp 36.9 C 11/20/17 18:43 Pulse 102 H 11/20/17 18:43 Resp 16 11/20/17 18:43 BP 121/89 11/20/17 18:43 Pulse Ox 100 11/20/17 18:43 - Orders/Labs/Meds Orders: Active Orders 24 hr Category Date Time Status EKG Documentation Completion [RC] STAT Care 11/20/17 19:31 Active Chest 2V [CR] Stat Exams 11/20/17 19:32 Taken Head wo Cont [CT] Stat Exams 11/20/17 19:34 Taken DRUG SCREEN, URINE [URCHEM] Stat Lab 11/20/17 20:36 Ordered Potassium Chloride [Klor-Con M20] Med 11/20/17 21:38 Once 40 meq PO ONETIME ONE Medication Orders Potassium Chloride (Klor-Con M20) 40 meq PO ONETIME ONE Stop: 11/20/17 21:39 Labs: Laboratory Tests 11/20/17 11/20/17 11/20/17 Range/Units 18:40 18:40 18:40 WBC 6.87 (4.23-9.07) K/mm3 RBC 4.74 (4.63-6.08) M/mm3 Hgb 14.5 (13.7-17.5) gm/L Hct 41.4 (40.1-51.0) % MCV 87.3 (79.0-92.2) fl MCH 30.6 (25.7-32.2) pg MCHC 35.0 (32.2-35.5) g/dl RDW Std Deviation 39.9 (35.1-43.9) fL Plt Count 224 (163-337) K/mm3 MPV 11.3 (9.4-12.3) fl Neutrophils % (Manual) 44 (40-60) % Band Neutrophils % 0 (0-10) % Lymphocytes % (Manual) 46 H (20-40) % Atypical Lymphs % 0 % Monocytes % (Manual) 5 (2-10) % Eosinophils % (Manual) 4 (0.8-7.0) % Basophils % (Manual) 1 (0.2-1.2) Platelet Estimate Adequate Plt Morphology Comment Normal RBC Morph Comment Normal PT 10.9 (9.5-12.1) SECONDS INR 1.00 Sodium 139 (136-145) mEq/L Potassium 3.1 L (3.5-5.1) mEq/L Chloride 105 (98-107) mEq/L Carbon Dioxide 19 L (21-32) mEq/L Anion Gap 18.1 H (5-15) BUN 11 (7-18) mg/dL Creatinine 1.2 (0.7-1.3) mg/dL Est Cr Clr Drug Dosing 92.48 mL/min Estimated GFR (MDRD) > 60 (>60) mL/min BUN/Creatinine Ratio 9.2 L (14-18) Glucose 90 (74-106) mg/dL Calcium 9.2 (8.5-10.1) mg/dL Total Bilirubin 0.9 (0.2-1.0) mg/dL AST 46 H (15-37) U/L ALT 83 H (16-63) U/L Alkaline Phosphatase 60 (46-116) U/L Creatine Kinase 160 (39-308) U/L Troponin I < 0.017 (0.00-0.056) ng/mL Total Protein 7.4 (6.4-8.2) g/dl Albumin 3.8 (3.4-5.0) g/dl Globulin 3.6 gm/dL Albumin/Globulin Ratio 1.1 (1-2) Lipase (73-393) U/L Urine Color (Yellow) Urine Appearance (Clear) Urine pH (5.0-8.0) Ur Specific Honor (1.005-1.030) Urine Protein (Negative) Urine Glucose (UA) (Negative) Urine Ketones (Negative) Urine Occult Blood (Negative) Urine Nitrite (Negative) Urine Bilirubin (Negative) Urine Urobilinogen (0.2-1.0) Ur Leukocyte Esterase (Negative) Urine RBC (0-5) /hpf Urine WBC (0-5) /hpf Ur Epithelial Cells (0-5) /hpf Urine Bacteria (FEW) /hpf Urine Mucus (FEW) /hpf Urine Opiates Screen (NEGATIVE) Ur Buprenorphine Scrn (NEGATIVE) Ur Oxycodone Screen (NEGATIVE) Urine Methadone Screen (NEGATIVE) Ur Propoxyphene Screen (NEGATIVE) Ur Barbiturates Screen (NEGATIVE) Ur Tricyclics Screen (NEGATIVE) Ur Phencyclidine Scrn (NEGATIVE) Ur Amphetamine Screen (NEGATIVE) U Methamphetamines Scrn (NEGATIVE) U Benzodiazepines Scrn (NEGATIVE) U Cocaine Metab Screen (NEGATIVE) U Marijuana (THC) Screen (NEGATIVE) Ethyl Alcohol 0.03 (0.00) gm% 11/20/17 11/20/17 11/20/17 Range/Units 18:40 20:35 20:36 WBC (4.23-9.07) K/mm3 RBC (4.63-6.08) M/mm3 Hgb (13.7-17.5) gm/L Hct (40.1-51.0) % MCV (79.0-92.2) fl MCH (25.7-32.2) pg MCHC (32.2-35.5) g/dl RDW Std Deviation (35.1-43.9) fL Plt Count (163-337) K/mm3 MPV (9.4-12.3) fl Neutrophils % (Manual) (40-60) % Band Neutrophils % (0-10) % Lymphocytes % (Manual) (20-40) % Atypical Lymphs % % Monocytes % (Manual) (2-10) % Eosinophils % (Manual) (0.8-7.0) % Basophils % (Manual) (0.2-1.2) Platelet Estimate Plt Morphology Comment RBC Morph Comment PT (9.5-12.1) SECONDS INR Sodium (136-145) mEq/L Potassium (3.5-5.1) mEq/L Chloride (98-107) mEq/L Carbon Dioxide (21-32) mEq/L Anion Gap (5-15) BUN (7-18) mg/dL Creatinine (0.7-1.3) mg/dL Est Cr Clr Drug Dosing mL/min Estimated GFR (MDRD) (>60) mL/min BUN/Creatinine Ratio (14-18) Glucose (74-106) mg/dL Calcium (8.5-10.1) mg/dL Total Bilirubin (0.2-1.0) mg/dL AST (15-37) U/L ALT (16-63) U/L Alkaline Phosphatase (46-116) U/L Creatine Kinase (39-308) U/L Troponin I (0.00-0.056) ng/mL Total Protein (6.4-8.2) g/dl Albumin (3.4-5.0) g/dl Globulin gm/dL Albumin/Globulin Ratio (1-2) Lipase 198 (73-393) U/L Urine Color Yellow (Yellow) Urine Appearance Clear (Clear) Urine pH 6.5 (5.0-8.0) Ur Specific Honor 1.025 (1.005-1.030) Urine Protein Trace H (Negative) Urine Glucose (UA) Negative (Negative) Urine Ketones Negative (Negative) Urine Occult Blood Negative (Negative) Urine Nitrite Negative (Negative) Urine Bilirubin Negative (Negative) Urine Urobilinogen 2.0 H (0.2-1.0) Ur Leukocyte Esterase Negative (Negative) Urine RBC Not seen (0-5) /hpf Urine WBC 0-5 (0-5) /hpf Ur Epithelial Cells 0-5 (0-5) /hpf Urine Bacteria Rare (FEW) /hpf Urine Mucus Not seen (FEW) /hpf Urine Opiates Screen Negative (NEGATIVE) Ur Buprenorphine Scrn Negative (NEGATIVE) Ur Oxycodone Screen Negative (NEGATIVE) Urine Methadone Screen Negative (NEGATIVE) Ur Propoxyphene Screen Negative (NEGATIVE) Ur Barbiturates Screen Negative (NEGATIVE) Ur Tricyclics Screen Negative (NEGATIVE) Ur Phencyclidine Scrn Negative (NEGATIVE) Ur Amphetamine Screen Presumptive positive H (NEGATIVE) U Methamphetamines Scrn Negative (NEGATIVE) U Benzodiazepines Scrn Presumptive positive H (NEGATIVE) U Cocaine Metab Screen Negative (NEGATIVE) U Marijuana (THC) Screen Negative (NEGATIVE) Ethyl Alcohol (0.00) gm% Meds: Medications Generic Name Dose Route Start Last Admin Trade Name Freq PRN Reason Stop Dose Admin Potassium Chloride 40 meq 11/20/17 21:38 Klor-Con M20 PO 11/20/17 21:39 ONETIME ONE Discontinued Medications Generic Name Dose Route Start Last Admin Trade Name Freq PRN Reason Stop Dose Admin Lactated Ringer's 2,000 mls @ 999 mls/hr 11/20/17 19:30 11/20/17 19:53 Ringers, Lactated IV 11/20/17 21:30 999 mls/hr .BOLUS ONE Administration Lorazepam 1 mg 11/20/17 19:35 11/20/17 19:53 Ativan IVPUSH 11/20/17 19:36 1 mg ONETIME ONE Administration - Re-Assessments/Exams Free Text/Narrative Re-Assessment/Exam: 11/20/17 21:[address] reviewed unremarkable other than urine toxicology positive for amphetamines and benzos he's been getting benzos. Patient is given a milligram of Ativan and feels better I will not refill his benzos to be discharged home Departure - Departure Time of Disposition: 21:39 Disposition: Home, Self-Care 01 Clinical Impression: Adverse drug effect - Discharge Information Referrals: PCP,None [Primary Care Provider] - Forms: ED Department Discharge Additional Instructions: Return to the emergency room with any questions problems worsening symptoms. Don't do drugs Establish with a regular physician. - My Orders Last 24 Hours: My Active Orders 11/20/17 19:31 EKG Documentation Completion [RC] STAT 11/20/17 19:32 Chest 2V [CR] Stat 11/20/17 19:34 Head wo Cont [CT] Stat 11/20/17 20:36 DRUG SCREEN, URINE [URCHEM] Stat 11/20/17 21:38 Potassium Chloride [Klor-Con M20] 40 meq PO ONETIME ONE - Assessment/Plan Last 24 Hours: My Active Orders 11/20/17 19:31 EKG Documentation Completion [RC] STAT 11/20/17 19:32 Chest 2V [CR] Stat 11/20/17 19:34 Head wo Cont [CT] Stat 11/20/17 20:36 DRUG SCREEN, URINE [URCHEM] Stat 11/20/17 21:38 Potassium Chloride [Klor-Con M20] 40 meq PO ONETIME ONE
[2017-11-20] MEDS ORDERED: Lactated Ringers 2,000 ML IV ONE (19:30)
[2017-11-20] MEDS ORDERED: LORazepam 2 MG/ML SDV IVPUSH ONE (19:35)
[2017-11-20] MEDS ORDERED: Potassium Chloride 20 MEQ Tab.ER PO ONE (21:38)
--- NOTE | 2017-11-21 10:44 | CT ---
Head CT Technique: Multiple axial sections through the brain were obtained. Intravenous contrast was not utilized. Portions of the study were repeated due to motion artifact. Comparison: Prior head CT exam of 11/13/17. Findings: Ventricles along with basal cisterns and sulci over the convexities are within normal limits for the patient's age. No abnormal parenchymal densities are seen. No evidence of intracranial hemorrhage. No midline shift or mass effect is seen. Visualized sinuses are clear. No acute calvarial abnormality is seen. Impression: 1. Nothing acute is appreciated on noncontrast head CT study. Diagnostic code #1 I agree with preliminary report from [facility], finalized at 11/20/17, 10:23 PM Central Time
--- NOTE | 2017-11-21 10:44 | CR ---
Chest: Two views of the chest were obtained. Comparison: Prior chest x-ray of 11/13/17. Heart size and mediastinum are normal. Lungs are clear. Bony structures are unremarkable. Impression: 1. Nothing acute is seen on two-view chest x-ray. Diagnostic code #1
== END 2017-11-20 21:48 | disposition home or self-care (01) ==
LOC: JD.ED 18:39
DX: R07.89 Other chest pain (principal); R10.9 Unspecified abdominal pain; T43.625A Adverse effect of amphetamines, initial encounter; F17.210 Nicotine dependence, cigarettes, uncomplicated; Z79.899 Other long term (current) drug therapy
CPT/HCPCS: 36415; 70450; 71046; 80053; 80306; 81001; 82550; 83690; 84484; 85007; 85027; 85610; 93005; 96361; 96374; 99285; A9270; G0480; J2060; J7120